=== PATIENT | female | born 1985 | race African-American/Black ===

== ENCOUNTER 2019-04-02 10:05 | Emergency (ER) | payer MEDICAID, OTHER, SELFPAY ==
[~2019-04-02] VITALS: Ht 157.5 cm; Wt 128.6 kg
[2019-04-02] MEDS ORDERED: FLON1SPR NARES (10:16)
[2019-04-02] MEDS ORDERED: NAPROXEN 250 MG TAB PO ONE (11:15)
[2019-04-02 13:04] VITALS: BP 155/88
[2019-04-02] MEDS ORDERED: MOBI4TAB PO (13:05)
[2019-04-02] MEDS ORDERED: ZANA4TAB PO (13:05)
--- NOTE | 2019-04-02 13:32 | REP ---
LUMBAR SPINE COMPLETE: 04/02/2019. Clinical history: Low back pain with right-sided sciatica. Findings: No prior study. The five views show no scoliosis. Posterior elements were intact on the frontal view. Sacrum, SI joints and foramina were unremarkable. Pelvic ring intact. Iliac wings unremarkable. Oblique views show no evidence of spondylolysis or spondylolisthesis. Vertebral body heights and the disc space heights show only minimal narrowing at L5-S1. No compression deformities are noted. No facet arthritis. Impression: 1. Very minimal disc space narrowing at L5-S1, otherwise normal lumbar spine series. Electronically Signed by Chris Buckley MD 04/02/2019 09:54 P
== END 2019-04-02 13:10 | disposition home or self-care (01) ==
LOC: M ED 10:05
DX: M54.41 Lumbago with sciatica, right side (principal); M50.30 Other cervical disc degeneration, unspecified cervical region; M26.609 Unspecified temporomandibular joint disorder, unspecified side

== ENCOUNTER 2019-04-28 19:28 | Emergency (ER) | payer MEDICAID ==
[~2019-04-28] VITALS: Ht 157.5 cm; Wt 129.6 kg
[2019-04-28 19:28] VITALS: BP 143/93
[~2019-04-28 19:28] MED LIST: FLON1SPR NARES; MOBI4TAB PO; ZANA4TAB PO
--- NOTE | 2019-04-28 22:08 | ED PDOC ---
Post-Departure Follow-Up PT LEFT WITHOUT BEING SEEN BY A PROVIDER ADRIA BUSH, Apr 28, 2019 22:08
[2019-04-29] MEDS ORDERED: AUGM875T28 PO (13:25)
[2019-04-29] MEDS ORDERED: IBUP80TA PO (13:25)
== END 2019-04-28 22:30 | disposition left against medical advice (07) ==
LOC: M ED 19:28
DX: K08.89 Other specified disorders of teeth and supporting structures (principal); Z53.21 Procedure and treatment not carried out due to patient leaving prior to being seen by health care provider

== ENCOUNTER 2019-04-29 11:07 | Emergency (ER) | payer MEDICAID ==
[~2019-04-29] VITALS: Ht 157.5 cm; Wt 130.9 kg
[2019-04-29] MEDS ORDERED: ARTICAINE HCL/EPINEPHRINE 4%-1:200,000 1.7ML INJ (SEPTOCAINE) SM ONE (11:45)
[2019-04-29 12:03] LABS: BASO # 0.1 10^3/uL (0.0-0.2); BASO % 1.2 % (0.0-1.0); EOS # 0.2 10^3/uL (0.0-0.5); EOS % 4.5 % (0.0-3.0); HEMATOCRIT 34.4 % (36.0-47.0); HEMOGLOBIN 10.6 g/dl (12.0-15.5); MEAN CORPUSCULAR HEMOGLOBIN 27.4 pg (27.0-33.0); MEAN CORPUSCULAR HGB CONC 30.8 g/dl (32.0-36.5); MEAN CORPUSCULAR VOLUME 88.9 fl (80.0-96.0); MONO # 0.6 10^3/uL (0.0-0.8); MONO % 11.2 % (0.0-5.0); NEUTROPHILS # 2.1 10^3/uL (1.5-8.5); NEUTROPHILS % 42.9 % (36.0-66.0); PLATELET COUNT, AUTOMATED 356 10^3/uL (150-450); RED BLOOD COUNT 3.87 10^6/uL (4.00-5.40); WHITE BLOOD COUNT 4.9 10^3/uL (4.0-10.0)
[2019-04-29] MEDS ORDERED: AUGM875T28 PO (13:25)
[2019-04-29] MEDS ORDERED: IBUP80TA PO (13:25)
[2019-04-29 13:33] VITALS: BP 150/98
== END 2019-04-29 14:15 | disposition home or self-care (01) ==
LOC: M ED 11:07
DX: R68.84 Jaw pain (principal); K08.89 Other specified disorders of teeth and supporting structures; K04.7 Periapical abscess without sinus; M26.602 Left temporomandibular joint disorder, unspecified; D64.9 Anemia, unspecified; I10 Essential (primary) hypertension; F17.200 Nicotine dependence, unspecified, uncomplicated

== ENCOUNTER 2019-06-09 23:32 | Emergency (ER) | payer OTHER ==
[~2019-06-09] VITALS: Ht 157.5 cm; Wt 129.6 kg
[~2019-06-09 23:32] MED LIST changes: +AUGM875T28 PO; +IBUP80TA PO
[2019-06-09 23:33] VITALS: BP 170/94
[2019-06-09] MEDS ORDERED: FLON1SPR NARES (23:38)
== END 2019-06-10 00:16 | disposition left against medical advice (07) ==
LOC: M ED 23:32
DX: Z53.21 Procedure and treatment not carried out due to patient leaving prior to being seen by health care provider (principal)

== ENCOUNTER 2019-07-03 13:23 | Emergency (ER) | payer OTHER ==
[~2019-07-03] VITALS: Ht 157.5 cm; Wt 129.6 kg
[2019-07-03 14:33] LABS: BASO # 0.1 10^3/uL (0.0-0.2); BASO % 0.8 % (0.0-1.0); EOS # 0.4 10^3/uL (0.0-0.5); EOS % 5.9 % (0.0-3.0); HEMATOCRIT 37.2 % (36.0-47.0); HEMOGLOBIN 11.3 g/dl (12.0-15.5); LYMPH # 1.9 10^3/uL (1.5-5.0); MEAN CORPUSCULAR HEMOGLOBIN 27.1 pg (27.0-33.0); MEAN CORPUSCULAR HGB CONC 30.4 g/dl (32.0-36.5); MEAN CORPUSCULAR VOLUME 89.2 fl (80.0-96.0); MONO # 0.7 10^3/uL (0.0-0.8); MONO % 11.4 % (0.0-5.0); NEUTROPHILS # 3.2 10^3/uL (1.5-8.5); NEUTROPHILS % 51.4 % (36.0-66.0); PLATELET COUNT, AUTOMATED 373 10^3/uL (150-450); RED BLOOD COUNT 4.17 10^6/uL (4.00-5.40); WHITE BLOOD COUNT 6.2 10^3/uL (4.0-10.0)
[2019-07-03 14:57] LABS: ALBUMIN 3.6 GM/DL (3.2-5.2); ALT/SGPT 13 U/L (12-78); BILIRUBIN,DIRECT < 0.1 MG/DL (0.0-0.2); BILIRUBIN,TOTAL 0.3 MG/DL (0.2-1.0); BLOOD UREA NITROGEN 19 MG/DL (7-18); CALCIUM LEVEL 9.2 MG/DL (8.5-10.1); CARBON DIOXIDE LEVEL 26 MEQ/L (21-32); CHLORIDE LEVEL 109 MEQ/L (98-107); CREATININE FOR GFR 0.99 MG/DL (0.55-1.30); GLOMERULAR FILTRATION RATE > 60.0 (>60); GLUCOSE, FASTING 82 MG/DL (70-100); LIPASE 126 U/L (73-393); POTASSIUM SERUM 4.7 MEQ/L (3.5-5.1); SODIUM LEVEL 140 MEQ/L (136-145); TOTAL PROTEIN 7.4 GM/DL (6.4-8.2)
[2019-07-03 15:00] LABS: HCG, SERUM QUALITATIVE NEGATIVE (NEGATIVE)
[2019-07-03] MEDS ORDERED: ISOVUE-370 76% 100ML VIAL (Q9967) As Ordered ONE (15:18)
[2019-07-03 16:39] VITALS: BP 139/89
--- NOTE | 2019-07-04 07:00 | REP ---
CT abdomen and pelvis with IV but without oral contrast: History: Right lower quadrant pain and diarrhea. No comparison study. CT contrast dose: 100 mL of intravenous Isovue [address] findings: Preliminary digital center maker hand radiograph is unremarkable. Normal bowel gas pattern. The lung bases are clear on axial CT images. The liver and the spleen are normal in size, homogeneous in texture. No adrenal lesion is seen. No abnormality is noted in the pancreas. The gallbladder is small and unremarkable. There is mild cortical scarring in the upper and lower pole of the right kidney. No hydronephrosis is seen. No mass lesion is observed. No intrarenal calculus is seen. No retroperitoneal mass or adenopathy is seen. The appendix is surgically absent. Small and large intestinal bowel loops are unremarkable in the abdomen and pelvis. No abdominal wall defect is seen. The uterus is mildly enlarged with dimensions of 10.7 x 5.3 x 6.6 cm. No focal uterine mass is seen. No ovarian mass or cyst is observed. Urinary bladder is unremarkable. There is no evidence of free intraperitoneal air or abnormal fluid collection. Impression: The appendix is surgically absent. Mildly enlarged uterus. No acute abdominal or pelvic CT abnormality. There is some old cortical scarring of the right kidney. Electronically Signed by Vince Loera MD 07/04/2019 08:37 A
== END 2019-07-03 16:43 | disposition home or self-care (01) ==
LOC: M ED 13:23
DX: R19.7 Diarrhea, unspecified (principal); I10 Essential (primary) hypertension; G47.30 Sleep apnea, unspecified; F17.200 Nicotine dependence, unspecified, uncomplicated; Z79.899 Other long term (current) drug therapy
CPT/HCPCS: 74177; 80048; 80076; 81001; 83690; 84703; 85025; 87086; 99284; Q9967

== ENCOUNTER 2019-09-07 20:52 | Emergency (ER) | payer OTHER ==
[~2019-09-07] VITALS: Ht 157.5 cm; Wt 118.2 kg
[2019-09-07 21:49] LABS: INFLUENZA A AMPLIFICATION NEGATIVE (NEGATIVE); INFLUENZA B AMPLIFICATION NEGATIVE (NEGATIVE)
[2019-09-08] MEDS ORDERED: MAGIC MOUTHWASH SUSPENSION BTL SSP STA (00:01)
[2019-09-08] MEDS ORDERED: PROAAER10 INH (00:10)
[2019-09-08] MEDS ORDERED: IPRATROPIUM 0.5MG/ALBUTEROL 2.5MG INH SOL UD 3ML (DUONEB)(J7620) NEB ONE (00:15)
[2019-09-08] MEDS ORDERED: BENZONATATE 100 MG CAP PO ONE (00:15)
[2019-09-08] MEDS ORDERED: NAPROXEN 250 MG TAB PO ONE (00:15)
[2019-09-08] MEDS ORDERED: PRED20TA PO (00:48)
[2019-09-08] MEDS ORDERED: AZIT-12 PO (00:48)
[2019-09-08] MEDS ORDERED: CLEV1MIS25 XX (00:48)
[2019-09-08] MEDS ORDERED: NAPR-837 PO (00:48)
[2019-09-08] MEDS ORDERED: ALBU83IN NEB (00:48)
--- NOTE | 2019-09-08 00:51 | REP ---
Clinical: Cough . Comparison: None . Technique: PA and lateral. Findings: The mediastinum and cardiac silhouette are normal. The lung he are clear and without acute consolidation, effusion, or pneumothorax. The skeletal structures are intact and normal. Impression: 1. No acute cardiopulmonary process. Electronically Signed by Ori Gamino MD 09/08/2019 12:42 A
[2019-09-08 01:00] VITALS: BP 135/90
[2019-09-08] MEDS ORDERED: AZITHROMYCIN 250 MG TAB PO ONE (01:00)
== END 2019-09-08 01:02 | disposition home or self-care (01) ==
LOC: M ED 20:52
DX: J06.9 Acute upper respiratory infection, unspecified (principal); R07.89 Other chest pain; R05 Cough; R06.2 Wheezing; I10 Essential (primary) hypertension; J45.909 Unspecified asthma, uncomplicated; F17.200 Nicotine dependence, unspecified, uncomplicated

== ENCOUNTER 2019-10-25 08:21 | Emergency (ER) | payer OTHER ==
[~2019-10-25] VITALS: Ht 157.5 cm; Wt 132.5 kg
[~2019-10-25 08:21] MED LIST changes: +ALBU83IN NEB; +AZIT-12 PO; +CLEV1MIS25 XX; +NAPR-837 PO; +PRED20TA PO; +PROAAER10 INH
[2019-10-25 09:38] LABS: BASO # 0.1 10^3/uL (0.0-0.2); BASO % 1.1 % (0.0-1.0); EOS # 0.4 10^3/uL (0.0-0.5); EOS % 7.7 % (0.0-3.0); HEMATOCRIT 35.4 % (36.0-47.0); HEMOGLOBIN 10.8 g/dl (12.0-15.5); LYMPH # 1.7 10^3/uL (1.5-5.0); MEAN CORPUSCULAR HEMOGLOBIN 26.9 pg (27.0-33.0); MEAN CORPUSCULAR HGB CONC 30.5 g/dl (32.0-36.5); MEAN CORPUSCULAR VOLUME 88.3 fl (80.0-96.0); MONO # 0.6 10^3/uL (0.0-0.8); MONO % 13.5 % (0.0-5.0); NEUTROPHILS # 1.8 10^3/uL (1.5-8.5); NEUTROPHILS % 39.5 % (36.0-66.0); PLATELET COUNT, AUTOMATED 337 10^3/uL (150-450); RED BLOOD COUNT 4.01 10^6/uL (4.00-5.40); WHITE BLOOD COUNT 4.5 10^3/uL (4.0-10.0)
[2019-10-25 09:56] LABS: BLOOD UREA NITROGEN 17 MG/DL (7-18); CALCIUM LEVEL 8.3 MG/DL (8.5-10.1); CARBON DIOXIDE LEVEL 27 MEQ/L (21-32); CHLORIDE LEVEL 110 MEQ/L (98-107); CREATININE FOR GFR 0.81 MG/DL (0.55-1.30); GLOMERULAR FILTRATION RATE > 60.0 (>60); GLUCOSE, FASTING 93 MG/DL (70-100); POTASSIUM SERUM 4.3 MEQ/L (3.5-5.1); SODIUM LEVEL 141 MEQ/L (136-145)
[2019-10-25 10:32] VITALS: BP 132/93
== END 2019-10-25 10:35 | disposition home or self-care (01) ==
LOC: M ED 08:21
DX: N94.6 Dysmenorrhea, unspecified (principal); N93.9 Abnormal uterine and vaginal bleeding, unspecified; Z86.19 Personal history of other infectious and parasitic diseases; Z87.59 Personal history of other complications of pregnancy, childbirth and the puerperium; I10 Essential (primary) hypertension; J45.909 Unspecified asthma, uncomplicated; F17.200 Nicotine dependence, unspecified, uncomplicated; F12.10 Cannabis abuse, uncomplicated

== ENCOUNTER → 2020-01-25 | Outpatient (REF) | payer OTHER, MEDICAID ==
[2020-01-27 08:09] LABS: MUMPS VIRUS IgG ANTIBODY 19.2 AU/mL (Immune >10.9); RUBEOLA IgG ANTIBODY 15.2 AU/mL (Immune >16.4)
== END ==
LOC: M LAB REF 16:06
PROVIDERS: ATTEND Physician Assistant
DX: Z76.89 Persons encountering health services in other specified circumstances (principal); Z02.1 Encounter for pre-employment examination

== ENCOUNTER 2020-02-01 07:42 | Emergency (ER) | payer OTHER ==
[~2020-02-01] VITALS: Ht 160 cm; Wt 131.0 kg
[2020-02-01 08:19] LABS: BASO % 0.6 % (0.0-1.0); EOS # 0.3 10^3/uL (0.0-0.5); HEMATOCRIT 33.2 % (36.0-47.0); HEMOGLOBIN 10.4 g/dl (12.0-15.5); LYMPH # 2.1 10^3/uL (1.5-5.0); LYMPH % 33.1 % (24.0-44.0); MEAN CORPUSCULAR HEMOGLOBIN 27.1 pg (27.0-33.0); MEAN CORPUSCULAR HGB CONC 31.3 g/dl (32.0-36.5); MEAN CORPUSCULAR VOLUME 86.5 fl (80.0-96.0); MONO # 0.6 10^3/uL (0.0-0.8); MONO % 9.9 % (0.0-5.0); NEUTROPHILS # 3.4 10^3/uL (1.5-8.5); NEUTROPHILS % 52.2 % (36.0-66.0); PLATELET COUNT, AUTOMATED 337 10^3/uL (150-450); RED BLOOD COUNT 3.84 10^6/uL (4.00-5.40); WHITE BLOOD COUNT 6.4 10^3/uL (4.0-10.0)
[2020-02-01 08:52] LABS: ALBUMIN 3.2 GM/DL (3.2-5.2); ALT/SGPT 11 U/L (12-78); BILIRUBIN,DIRECT 0.1 MG/DL (0.0-0.2); BILIRUBIN,TOTAL 0.4 MG/DL (0.2-1.0); HCG, SERUM QUALITATIVE POSITIVE (NEGATIVE); LIPASE 92 U/L (73-393); TOTAL PROTEIN 7.1 GM/DL (6.4-8.2)
[2020-02-01 09:46] LABS: BLOOD UREA NITROGEN 12 MG/DL (7-18); CALCIUM LEVEL 8.6 MG/DL (8.5-10.1); CARBON DIOXIDE LEVEL 26 MEQ/L (21-32); CHLORIDE LEVEL 107 MEQ/L (98-107); CREATININE FOR GFR 0.79 MG/DL (0.55-1.30); GLOMERULAR FILTRATION RATE > 60.0 (>60); GLUCOSE, FASTING 96 MG/DL (70-100); HCG, SERUM QUANTITATIVE 19972 MIU/ML; POTASSIUM SERUM 4.1 MEQ/L (3.5-5.1); SODIUM LEVEL 138 MEQ/L (136-145)
--- NOTE | 2020-02-01 10:46 | REP ---
Clinical: Dating and viability. Technique: Transabdominal first trimester obstetrical ultrasound with color Doppler evaluation. Findings: Ultrasound examination demonstrates single live early intrauterine . Gestational sac with yolk sac and pole identified. CRL of 5 mm corresponds to 6 weeks 2 days gestational age with estimated date of delivery 09/24/2020. heart rate equals 129 beats per minute. No gross abnormalities are identified. Maternal ovaries demonstrate left corpus luteum cyst. Impression: Single live early intrauterine at 6 weeks 2 days gestational age. Complete anatomical assessment should be performed at 19-20 weeks. Electronically Signed by Ori Gamino MD 02/01/2020 10:37 A
[2020-02-01 11:09] VITALS: BP 145/84
== END 2020-02-01 11:41 | disposition home or self-care (01) ==
LOC: M ED 07:42
DX: R10.84 Generalized abdominal pain (principal); Z33.1 Pregnant state, incidental; M25.562 Pain in left knee; Z3A.01 Less than 8 weeks gestation of pregnancy

== ENCOUNTER → 2020-02-23 | Outpatient (REF) | payer OTHER ==
[~2020-02-23] MED LIST changes: +MICO2CRE; +PRENTAB7
[2020-02-23 13:20] LABS: HEMATOCRIT 33.9 % (36.0-47.0); HEMOGLOBIN 10.6 g/dl (12.0-15.5); MEAN CORPUSCULAR HEMOGLOBIN 27.5 pg (27.0-33.0); MEAN CORPUSCULAR HGB CONC 31.3 g/dl (32.0-36.5); MEAN CORPUSCULAR VOLUME 87.8 fl (80.0-96.0); PLATELET COUNT, AUTOMATED 439 10^3/uL (150-450); RED BLOOD COUNT 3.86 10^6/uL (4.00-5.40)
[2020-02-23 14:48] LABS: HCG, SERUM QUANTITATIVE 75673 MIU/ML
[2020-02-24 09:30] LABS: HEPATITIS B SURFACE ANTIGEN NEGATIVE (NEGATIVE)
[2020-02-24 09:57] LABS: HEPATITIS C VIRUS ABY INDEX 0.1 INDEX (<0.8)
[2020-02-24 09:58] LABS: HIV 1&2 SCREEN CENTAUR NEGATIVE (NEGATIVE)
== END ==
LOC: M LAB REF 11:41
PROVIDERS: ATTEND Obstetrics & Gynecology
DX: O36.80X0 Pregnancy with inconclusive fetal viability, not applicable or unspecified (principal)

== ENCOUNTER → 2020-03-02 | Outpatient (CLI) | payer OTHER ==
--- NOTE | 2020-03-02 14:39 | REP ---
REASON FOR EXAM: Followup. COMPARISON: 02/01/2020 Transvesical imaging only was obtained. Once again, within the uterus, there is an anechoic structure with increased echoes surrounding it consistent with a decidual reaction. Within the gestational sac, there is a pole with a mean crown-rump length measurement which is consistent with an 97-bvfy-5-day gestational age. Based on that the estimated date of delivery is 09/20/2020. Doppler interrogation of the heart shows a heart rate of 172 beats per minute. The maternal cervix measures 4 cm in length and is closed. The developing placenta is posterior at this time. No chorionic or subchorionic abnormality was noted. IMPRESSION: Early OB ultrasound as described above.
== END ==
LOC: M WHC 12:14
PROVIDERS: ATTEND Advanced Practice Midwife
DX: O36.80X0 Pregnancy with inconclusive fetal viability, not applicable or unspecified (principal); Z3A.11 11 weeks gestation of pregnancy

== ENCOUNTER 2020-03-06 09:11 | Emergency (ER) | payer OTHER ==
[~2020-03-06] VITALS: Ht 160 cm; Wt 130.8 kg
[~2020-03-06 09:11] MED LIST changes: -MICO2CRE; -PRENTAB7
[2020-03-06 09:12] VITALS: BP 137/73
[2020-03-06] MEDS ORDERED: PRENTAB7 (09:18)
[2020-03-06] MEDS ORDERED: MICO2CRE (09:18)
[2020-03-06 10:22] LABS: BASO % 0.4 % (0.0-1.0); EOS # 0.2 10^3/uL (0.0-0.5); EOS % 2.1 % (0.0-3.0); HEMATOCRIT 32.8 % (36.0-47.0); HEMOGLOBIN 10.2 g/dl (12.0-15.5); LYMPH # 1.9 10^3/uL (1.5-5.0); LYMPH % 26.6 % (24.0-44.0); MEAN CORPUSCULAR HEMOGLOBIN 27.1 pg (27.0-33.0); MEAN CORPUSCULAR HGB CONC 31.1 g/dl (32.0-36.5); MEAN CORPUSCULAR VOLUME 87.2 fl (80.0-96.0); MONO # 0.7 10^3/uL (0.0-0.8); NEUTROPHILS # 4.4 10^3/uL (1.5-8.5); NEUTROPHILS % 61.5 % (36.0-66.0); PLATELET COUNT, AUTOMATED 395 10^3/uL (150-450); RED BLOOD COUNT 3.76 10^6/uL (4.00-5.40); WHITE BLOOD COUNT 7.2 10^3/uL (4.0-10.0)
--- NOTE | 2020-03-06 12:58 | REP ---
Clinical: Pelvic pain and vaginal bleeding. Technique: Transabdominal first trimester obstetrical ultrasound with color Doppler evaluation. Findings: Ultrasound examination demonstrates single live early intrauterine . pole measurements of 4.5 cm corresponds to 11 weeks 2 days gestational age with estimated date of delivery 09/23/2020. heart rate equals 156 beats per minute. No obvious abnormality or subchorionic hemorrhage noted. Impression: Single live early intrauterine measuring at 11 weeks 2 days gestational age. Complete anatomical assessment should be performed at 19-20 weeks. Electronically Signed by Ori Gamino MD 03/06/2020 12:50 P
[2020-03-06 13:41] LABS: CHLAMYDIA DNA AMPLIFICATION NEGATIVE (NEGATIVE); GC DNA AMPLIFICATION NEGATIVE (NEGATIVE)
== END 2020-03-06 14:05 | disposition home or self-care (01) ==
LOC: M ED 09:11
DX: O26.891 Other specified pregnancy related conditions, first trimester (principal); N89.8 Other specified noninflammatory disorders of vagina; Z87.59 Personal history of other complications of pregnancy, childbirth and the puerperium; Z3A.11 11 weeks gestation of pregnancy

== ENCOUNTER → 2020-05-11 | Outpatient (CLI) | payer OTHER ==
[~2020-05-11] MED LIST changes: +MICO2CRE; +PRENTAB7
--- NOTE | 2020-05-17 17:23 | REP ---
OBSTETRIC SONOGRAPHY HISTORY: Supervision of for anatomy. FINDINGS: Scanning through the gravid uterus demonstrates a single living intrauterine gestation in a variable lie. motion is observed and heart rate is recorded at 156 beats per minute. A posterior grade 1 placenta is seen without evidence of previa or abruption. Amniotic fluid is subjectively normal. Closed cervical length is measured at 3.6 cm, viewed transabdominally. No extrauterine abnormality is observed. No abnormality is observed. The following anatomic structures are identified and felt to be sonographically unremarkable: cranium and intracranial contents, nuchal fold, face and profile, nose and lips, four chamber heart with left and right ventricular outflow tract views, diaphragm, left-sided stomach, three-vessel cord, kidneys and bladder, spine, upper and lower extremities. BIOMETRY CHART: BPD 4.7 cm 20 weeks 2 days Head circumference 17.5 cm 20 weeks 0 days Abdominal circumference 15.7 cm 20 weeks 6 days Femur length 3.5 cm 21 weeks 0 days Humeral length 3.5 cm 22 weeks 1 day AC/HC ratio 1.12 Normal Cephalic index 0.74 Normal Estimated weight 379 grams, 0 pounds 13 ounces, 30th percentile for 20 weeks 1 day. IMPRESSION: Single living intrauterine gestation at 20 weeks 6 days by todays composite sonographic criteria. Estimated date of delivery (MANUELA) by todays criteria 09/22/2020. anatomic survey is felt to be complete. MTDD
== END ==
LOC: M WHC 13:58
PROVIDERS: ATTEND Advanced Practice Midwife
DX: Z34.82 Encounter for supervision of other normal pregnancy, second trimester (principal); Z3A.20 20 weeks gestation of pregnancy

== ENCOUNTER → 2020-06-29 | Outpatient (CLI) | payer OTHER ==
[2020-06-29 09:16] LABS: HEMATOCRIT 32.4 % (36.0-47.0); HEMOGLOBIN 9.8 g/dl (12.0-15.5); MEAN CORPUSCULAR HGB CONC 30.2 g/dl (32.0-36.5); MEAN CORPUSCULAR VOLUME 89.3 fl (80.0-96.0); PLATELET COUNT, AUTOMATED 357 10^3/uL (150-450); RED BLOOD COUNT 3.63 10^6/uL (4.00-5.40); WHITE BLOOD COUNT 8.6 10^3/uL (4.0-10.0)
== END ==
LOC: M LAB 07:33
PROVIDERS: ATTEND Advanced Practice Midwife
DX: Z34.82 Encounter for supervision of other normal pregnancy, second trimester (principal); Z36.89 Encounter for other specified antenatal screening

== ENCOUNTER → 2020-08-24 | Outpatient (REF) | payer OTHER | LOC: M LAB REF 12:40 | PROVIDERS: ATTEND Advanced Practice Midwife | DX: Z34.83 Encounter for supervision of other normal pregnancy, third trimester (principal); Z3A.00 Weeks of gestation of pregnancy not specified ==

== ENCOUNTER 2020-08-27 15:14 | Emergency (ER) | payer OTHER ==
[~2020-08-27] VITALS: Ht 157.5 cm; Wt 138.6 kg
--- OUTSIDE RECORDS SUMMARY | 2020-08-27 15:21 | CCD ---
Author Author [facility] Organization [facility] Address Unknown Phone Unavailable Care Team Providers Care Veneer Patcher Name Role Phone Freddie, Pedro Giana DIRECTOR OF REIMBURSEMENT Unavailable Unavailable Freddie, A Giana DIRECTOR OF REIMBURSEMENT Unavailable Unavailable Freddie, A Giana DIRECTOR OF REIMBURSEMENT Unavailable Unavailable Freddie, A Giana DIRECTOR OF REIMBURSEMENT Unavailable Unavailable Freddie, A Giana DIRECTOR OF REIMBURSEMENT Unavailable Unavailable Freddie, A Giana DIRECTOR OF REIMBURSEMENT Unavailable Unavailable Freddie, A Giana DIRECTOR OF REIMBURSEMENT Unavailable Unavailable Freddie, A Giana DIRECTOR OF REIMBURSEMENT Unavailable Unavailable Freddie, A Giana DIRECTOR OF REIMBURSEMENT Unavailable Unavailable Freddie, A Giana DIRECTOR OF REIMBURSEMENT Unavailable Unavailable Freddie, A Giana DIRECTOR OF REIMBURSEMENT Unavailable Unavailable Freddie, A Giana DIRECTOR OF REIMBURSEMENT Unavailable Unavailable Freddie, A Giana DIRECTOR OF REIMBURSEMENT Unavailable Unavailable Freddie, A Giana DIRECTOR OF REIMBURSEMENT Unavailable Unavailable Freddie, A Giana DIRECTOR OF REIMBURSEMENT Unavailable Unavailable Freddie, A Giana DIRECTOR OF REIMBURSEMENT Unavailable Unavailable Freddie, A Giana DIRECTOR OF REIMBURSEMENT Unavailable Unavailable Freddie, A Giana DIRECTOR OF REIMBURSEMENT Unavailable Unavailable Freddie, A Giana DIRECTOR OF REIMBURSEMENT Unavailable Unavailable Freddie, A Giana DIRECTOR OF REIMBURSEMENT Unavailable Unavailable Freddie, A Giana DIRECTOR OF REIMBURSEMENT Unavailable Unavailable Freddie, A Giana DIRECTOR OF REIMBURSEMENT Unavailable Unavailable Freddie, A Giana DIRECTOR OF REIMBURSEMENT Unavailable Unavailable Freddie, A Giana DIRECTOR OF REIMBURSEMENT Unavailable Unavailable Freddie, A Giana DIRECTOR OF REIMBURSEMENT Unavailable Unavailable Freddie, A Giana DIRECTOR OF REIMBURSEMENT Unavailable Unavailable Freddie, A Giana DIRECTOR OF REIMBURSEMENT Unavailable Unavailable NON, PHYSICIAN STAFF Unavailable Unavailable TURRIN, SASCHA Unavailable Unavailable TURRIN, SASCHA Unavailable Unavailable TURRIN, SASCHA Unavailable Unavailable TURRIN, SASCHA Unavailable Unavailable Freddie, Giana DIRECTOR OF REIMBURSEMENT DIRECTOR OF REIMBURSEMENT Unavailable Unavailable DEBRA TOLEDO MD Unavailable Unavailable DEBRA TOLEDO MD Unavailable Unavailable DEBRA TOLEDO MD Unavailable Unavailable DEBRA TOLEDO MD Unavailable Unavailable Re-disclosure Warning The records that you are about to access may contain information from federally-assisted alcohol or drug abuse programs. If such information is present, then the following federally mandated warning applies: This information has been disclosed to you from records protected by federal confidentiality rules (42 CFR part 2). The federal rules prohibit you from making any further disclosure of this information unless further disclosure is expressly permitted by the written consent of the person to whom it pertains or as otherwise permitted by 42 CFR part 2. A general authorization for the release of medical or other information is NOT sufficient for this purpose. The Federal rules restrict any use of the information to criminally investigate or prosecute any alcohol or drug abuse patient.The records that you are about to access may contain highly sensitive health information, the redisclosure of which is protected by Article 27-F of the [facility] Public Health law. If you continue you may have access to information: Regarding HIV / AIDS; Provided by facilities licensed or operated by the [facility] Office of Mental Health; or Provided by the [facility] Office for People With Developmental Disabilities. If such information is present, then the following [facility] mandated warning applies: This information has been disclosed to you from confidential records which are protected by state law. State law prohibits you from making any further disclosure of this information without the specific written consent of the person to whom it pertains, or as otherwise permitted by law. Any unauthorized further disclosure in violation of state law may result in a fine or correction sentence or both. A general authorization for the release of medical or other information is NOT sufficient authorization for further disc losure. Allergies and Adverse Reactions Type Description Substance Reaction Status Data Source(s ) Drug Class NO KNOWN ALLERGIES NO KNOWN ALLERGIES [facility] Miscellaneous allergy SEASONAL SEASONAL [facility] Family History Family Member Name Family Member Gender Family Member Status Date o f Status Description Data Source(s) Unknown Female Diagnosis 09/20/2014 12:00:00 AM [facility]) Encounters Encounter Providers Location Date Indications Data Source(s ) Outpatient Attender: Giana [facility]CO [facility]: DEBRA TOLEDO MD 03/13/2020 12:0 0:00 AM [facility] Outpatient Attender: Giana OROZCO 01/27/2020 02:5 5:00 PM EDT [facility] Outpatient Attender: Giana OROZCO [facility]/27[facility]: [facility]STO EDDY [facility] ER[facility]STO EDDY 01/26/2020 08:43:01 A M EDT [facility] Outpatient Attender: ERNESTO EDDY 01/26/2020 [facility]: ER[facility]STO EDDY 01/25/2020 02:03:00 P M EDT [facility] Outpatient Attender: Giana CANALESP FP 01/25/2020 01:4 2:00 PM EDT [facility] Outpatient Attender: ERNESTO CANALESP FP 01/25/2020 01:42:00 P M EDT [facility] Outpatient Attender: Giana CANALESP FP 01/25/2020 01:3 0:05 PM EDT [facility] Outpatient Attender: ERNESTO CANALESP FP 01/25/2020 01:30:05 P M EDT [facility] Outpatient Attender: ERNESTO CANALESP FP 01/24/2020 07:59:23 P M EDT [facility] Outpatient Attender: ERNESTO CANALESP FP 01/24/2020 01:54:00 P M EDT [facility] Outpatient Attender: ERNESTO CANALESP FP 01/24/2020 11:13:00 A M EDT [facility] Outpatient Attender: Giana CANALESP FP 01/20/2020 09:1 6:00 AM EDT [facility] Outpatient Attender: ERNESTO CANALESP FP 12/23/2019 12:45:01 P M EDT [facility] Outpatient Attender: Giana CANALESP FP 12/07/2019 08:1 0:00 AM EDT [facility] Outpatient Attender: ERNESTO CANALESP FP 12/06/2019 10:56:01 A M EDT [facility] Outpatient Attender: DEBRA TOLEDO MD 12/05/2019 12:0 0:00 AM [facility] Outpatient Attender: ERNESTO CANALESP FP 10/18/2019 10:26:00 A M [facility] Outpatient Attender: ERNESTO CANALESP FP 10/18/2019 10:09:02 A M EST [facility] Outpatient Attender: ERNESTO CANALESP FP 10/17/2019 11:18:00 A M [facility] Outpatient Attender: Giana CANALESP FP 10/12/2019 03:0 6:01 PM EST [facility] Outpatient Attender: ERNESTO CANALESP FP 10/05/2019 12:47:00 P M EST [facility] Outpatient Attender: ERNESTO Frazier DIRECTOR OF REIMBURSEMENT FP 09/21/2019 12:14:00 P [facility] Outpatient Attender: ERNESTO Freddie DIRECTOR OF REIMBURSEMENT FP 09/21/2019 10:23:00 A [facility] Outpatient Attender: ERNESTO Freddie DIRECTOR OF REIMBURSEMENT FP 09/20/2019 09:29:01 A M [facility] Outpatient Attender: Giana Freddie DIRECTOR OF REIMBURSEMENT FP 09/20/2019 09:1 8:01 AM [facility] Outpatient Attender: ERNESTO Frazier DIRECTOR OF REIMBURSEMENT FP 09/15/2019 12:00:31 A M [facility] Outpatient Attender: ERNESTO Frazier DIRECTOR OF REIMBURSEMENT FP 09/14/2019 09:01:12 P [facility] Outpatient Attender: ERNESTO CANALESP FP 09/14/2019 12:04:01 P [facility] Outpatient Attender: ERNESTO Frazier DIRECTOR OF REIMBURSEMENT FP 09/14/2019 10:05:01 A M [facility] Outpatient 09/12/2019 02:27:00 PM [facility] Outpatient Attender: ERNESTO Frazier DIRECTOR OF REIMBURSEMENT FP 09/12/2019 10:10:01 A M [facility] Outpatient Attender: ERNESTO Freddie DIRECTOR OF REIMBURSEMENT FP 08/19/2019 09:25:00 A [facility] Outpatient Attender: Giana CANALESP FP 08/19/2019 09:2 4:00 AM [facility] Outpatient 08/01/2019 09:15:00 PM [facility] Emergency Attender: SASCHA ALLENConsultant: STAFF NON 08/01/2019 07:37:00 PM [facility] - 08/01/2019 10:29:00 PM [facility] Patient discharged. Outpatient Attender: ERNESTO Frazier DIRECTOR OF REIMBURSEMENT FP 08/01/2019 10:18:00 A M [facility] Outpatient 07/24/2019 09:30:00 PM [facility] Insurance Providers Payer name Policy type / Coverage type Policy ID Covered democrat ID Covered democrat's relationship to garcia Policy Garcia Plan Information ORAL [id number] SP [id number] ORAL [facility] [id number] S [id number] PROGRESSIVE CO NO FAULT [id number] SP [id number] MEDICAID M [id number] Self [id number] [place] [id number] SP [id number] Managed Care [place] P [id number] S [id number] Medicaid S [id number] S [id number] [place] XIX MAN -PHYSICIAN [id number] 18 [id number] [place] -[place] [id number] 18 [id number] MEDICAID [id number] SP [id number] MEDICAID [id number] Char [id number] SELF PAY ONLY [id number] SP [id number] ORAL I [id number] Self [id number] ORAL MEDICAID [id number] Char 7 [id number] ORAL MEDICAID [id number] Char 7 [id number] ORAL CARE HEA [id number] S [id number] [place] Medicaid F [id number] SELF 7 [id number] Oral Medicaid F [id number] SELF 7 [id number] MEDICAID [id number] Char [id number] ORAL MEDICAID PI PI [place] Medicaid F [id number] SELF 7 [id number] Oral Medicaid F [id number] SELF 7 [id number] MEDICAID [id number] Char [id number] MEDICAID [id number] Char [id number] MEDICAID [id number] Char [id number] MEDICAID [id number] Char [id number] MEDICAID [id number] Char [id number] MEDICAID [id number] Char [id number] Oral [id number] STPP Wrap [id number] [place] Medicaid F [id number] SELF 7 [id number] Medicaid [facility] S D [id number] SELF [id number] Oral Medicaid F [id number] SELF 7 [id number] ORAL I [id number] Self [id number] MEDICAID [id number] Char [id number] ORAL CARE HEA [id number] TOTAL CARE I [id number] Self [id number] TOTAL CARE MEDICAID [id number] Char [id number] Total Care Inc [id number] [facility] [id number] [facility] I [id number] Self [id number] TOTAL CARE W [id number] S [id number] MEDICAID W UNAVAILABLE S UNAVAILA BLE MEDICAID GME W [id number] S [id number] [facility] COMM PLAN ASIA W [id number] S [id number] MEDICAID GME W UNAVAILABLE S UNAVA ILABLE SELF PAY 5 UNAVAILABLE 1 UNAVAILA BLE SELFPAY 5 UNAVAILABLE 1 UNAVAILA BLE [facility] MEDICAID 7 [id number] 1 [id number] BLUE CHOICE OPTIONS 7 [id number] [facility] COMM PLAN ASIA UNAVAILABLE S UNAVAILABLE HMO BLUE OPTION W [id number] S [id number] MEDICAID REF AMBULAT W [id number] S [id number] BLUE CHOICE OPTION O [id number] S [id number] HMO BLUE OPTION W [id number] S [id number] MEDICAID 3 [id number] BLUE CHOICE OPTIONS 7 [id number] Problems, Conditions, and Diagnoses Code Display Name Description Problem Type Effective Dates Data Source(s) [id number] Immunization status unknown Immunization status unknow n 01/25/2020 01:41:08 PM EDT [facility] V70.5 Encounter for pre-employment examination Encounter for pre-employment examination 01/25/2020 01:41:08 PM EDT [facility] [id number] Amenorrhea, unspecified Amenorrhea, unspecified 01/25/2020 01:29:35 PM EDT [facility] V74.1 Encounter for screening for respiratory tuberculosis Encounter for screening for respiratory tuberculosis 01/25/2020 01:29:35 P M EDT [facility] [id number] Major depressive disorder, single episod e, mild Major depressive disorder, single episode, mild 09/14/2019 12:03:44 [facility] BMI 50.0-59.9 BMI 50.0-59.9 09/14/2019 12:03:44 PM [facility] 278.01 MORBID OBESITY MORBID OBESITY 09/14/2019 12:03: 44 PM [facility] 611.1 Large breast Large breast 09/14/2019 12:03:44 P M [facility] J45.21 Mild intermittent asthma with (acute) ex acerbation Exacerbation of intermittent asthma 09/14/2019 12:03:44 PM [facility] V70.0 Encounter for general adult medical exam ination with abnormal findings Encounter for general adult medical examination with abnormal findings 09/14/2019 12:03:44 PM [facility] Z01.419 Encounter for gynecological examination (general) (routine) without abnormal findings Encounter for gynecological examination (general) (routine) without abnormal findings 09/14/2019 12:03:44 PM [facility] [id number] Contraception care education Contraception care educat ion 09/14/2019 12:03:44 PM [facility] 401.1 Benign hypertension Benign hypertension 020 12:03:44 PM [facility] V15.89 Passive smoke exposure Passive smoke exposure 09/14/2019 12:03:44 PM [facility] 305.1 Tobacco use Tobacco use 09/14/2019 12:03:44 PM [facility] Y9289 Other specified places as the place of o ccurrence of the external cause Other specified places as the place of occurrence of the external cause Diagnosis 08/01/2019 07:37:00 PM [facility] [id number] Overexertion from strenuous movement or load, initial encounter Overexertion from strenuous movement or load, initial encounter Diagnosis 08/01/2019 07:37:00 PM [facility] [id number] Nicotine dependence, cigarettes, uncompl icated Nicotine dependence, cigarettes, uncomplicated Diagnosis 08/01/2019 07:37:00 PM [facility] I10 Essential (primary) hypertension Essential (primary) h ypertension Diagnosis 08/01/2019 07:37:00 PM [facility] [id number] Strain of muscle, fascia and tendon of l ower back, initial encounter Strain of muscle, fascia and tendon of lower back, initial encounter Diagnosis 08/01/2019 07:37:00 PM [facility] [id number] Unspecified injury of lower back, initia l encounter Unspecified injury of lower back, initial encounter Diagnosis 08/01/2019 07:37:00 PM [facility] Results ID Date Data Source [id number] 01/25/2020 02:20:52 PM EDT [facility] Tuberculosis Screening - General Review TB Risk Assessment: Low RiskReview of Systems: Denies Cough for longer than 3 weeks, Coughing up blood or blood in sputum, Unexplained weight loss, Chronic fever, Night sweats for longer than 3 weeks. Tuberculosis Screening Performed By: Ama Dalal, January 25, 2020 2:21 PMTuberculosis Screening - International Patients QuestionsHave you had recent close contact with someone who has infectious tuberculosis? NoHave you ever lived with someone who has had a positive PPD test? NoHave you ever had an abnormal chest X-ray? NoHave you ever tested positive for HIV and/or AIDS? NoHave you ever had an organ and/or bone marrow transplant? NoHave you ever taken any immunosuppressant medications? NoHave you spent at least 30 consecutive days in a country other than the [place]? No Patient denies residence and/or work in the following settings: correctional facility, HIV/AIDS residence, homeless [facility], laboratory, assisted care facility, hospital, [facility] home, and/or other healthcare facility.Tuberculosis Screening Performed By: Ama Dalal, January 25, 2020 2:22 PMPPD ReadingToday's PPD #1 Reading Date administered: No previous PPD in database. Patient failed to return for PPD reading.Read by: Jaime RAHMAN January 27, 2020 2:02 PMAssessment & Plan Orders:[id number] Vst-Est Level I [[id number]] 09249 - Venipuncture [[id number]] Labs In-House Blood TestsDate/Time Collected: January 25, 2020 2:10 PMTest Result Reference Range Normal ValueComments: blood draw done in office, [place] titres, hard stick, managed to get a little bit. Not sure if enough, but sent to [facility] Domonique Dalal, January 25, 2020 2:24 PM PPD ReadingToday's PPD #1 Reading Date administered: No previous PPD in database. Date/Time Read: 01/27/2020 @ 2:47 PM Induration: 0mm Interpretation: negativeRead by: Jaime RAHMAN January 27, 2020 2:47 PM Name Value Range Interpretation Code Description Data Lily rce(s) Supporting Document(s) ID Date Data Source [id number] 09/14/2019 11:14:47 AM [facility] Measurements & CalculationsHeight: 62 inches (5 ft. 2 in.) 157.48 cm Weight: 287 pounds 6 oz. 130.63 kg Body Mass Index (BMI): 52.75BMI Interpretation: Morbidly ObeseBody Surface Area (BSA): 2.23Weight Management Education Done (Nutrition/Physical Activity)Vital SignsTemperature: 97.4F oral Pulse Rate: 71 beats/minuteRespiratory Rate: 16 respirations/minuteBlood Pressure: 126/85 left arm sitting automaticO2 Saturation: 98% room airVital Signs performed by: Eduard Garcia LPN, September 14, 2019 11:30 AMVital Signs performed by: Jaime RAHMAN, September 14, 2019 11:33 AMInitial Intake Information from: patientRoom #: 11Infectious Disease- Travel Have you or your sexual partner travelled outside of the country recently? NoSmoking, Tobacco or Smoke Exposure StatusSmoke Status: current every day smokerTobacco Use: YesAdv to Quit: YesPassive Smoke Exposure: YesMenstrual HistoryLast Menstrual Period (LMP): 09/07/2019Any possibility of ? YesComments: Pt would like to be tested today. Healthcare HistorySince your last office visit...Have you been admitted to the hospital? NoHave you been to an emergency room (ER) or urgent care clinic? Yes - [facility] ER- Sick symptoms Emergency room (ER) or urgent care date reported today: 09/11/2019Have you seen another healthcare provider? NoHave you seen a dentist? Yes - [facility]CFHDIntake performed by: Eduard Garcia LPN, September 14, 2019 11:18 AMRate Your HealthIn general, would you say your health is? Very GoodPain AssessmentAre you currently having any pain which... You would like your provider to address? No Affects your activity level? NoDepression Screening - PHQ-2Over the last two weeks, have you... Had little interest or pleasure in doing things? Several days Been feeling down, depressed, or hopeless? Several days PHQ-2 Score: 2Anxiety Screening - KINZA-2Over the last two weeks, have you been... Feeling nervous, anxious, or on edge? Several days Unable to stop or control worrying? Several days KINZA-2 Score: 2Infectious Disease- Travel Cont. Any possibility of ? YesGeneralized Anxiety Disorder 7-Item Screening (KINZA-7)Answer Guide:0 = Not at all1 = Several days2 = Over half the days3 = Nearly every dayOver the last 2 weeks, how often have you been bothered by the following problems?Feeling nervous, anxious, or on edge: 1Not being able to stop or control worryinWorrying too much about different things: 0Trouble relaxinBeing so restless that it's hard to sit still: 1Becoming easily annoyed or irritable: 0Feeling afraid as if something awful might happen: 0Answer Guide:0 = Not difficult at all1 = Somewhat difficult2 = Very difficult3 = Extremely difficultHow difficult have these made it for you to do your work, take care of things at home, or get along with other people? 1GAD-7 Screening Results KINZA-2 Score: 2GAD-7 Score: 4Functional Impairment: Somewhat difficultRecommendation: Minimal anxietyPHQ-9 1. Over the last 2 weeks, patient reports the following frequency of symptoms: a. Little interest or pleasure in doing things -Several days b. Feeling down, depressed, or hopeless - Several days c. Trouble falling asleep, staying asleep, or sleeping too much -Several days d. Feeling tired or having little energy -Several days e. Poor appetite or overeating -Several days f. Feeling bad about yourself, feeling that you are a failure, or feeling that you have let yourself or your family down -Not at all g. Trouble concentrating on things such as reading the newspaper or watching television -Several days h. Moving or speaking so slowly that other people could have noticed. Or being so fidgety or restless that you have been moving around a lot more than usual -Not at all i. Thinking that you would be better off or that you want to hurt y ourself in some way -Not at all2. If you checked off any problems, how difficult have these problems made it for you to do your work, take care of things at home, or get along with other people? -Somewhat DifficultToday's PHQ-9 Results Score: 6 Severity: Mild Diagnosis Recommendation: No recommendation Functional Impairment: Somewhat DifficultDepression Screening Follow-Up ActionToday's Follow-Up Action Depression follow-up done. Follow-Up Action: Prescribed antidepressant medicationPRAPARE Sociodemographic Characteristics Race: Black or Ethnicity: Not or Preferred Language: EnglishFamily and Home Address: [address] [place] [address] What is your housing situation today? I have housing Are you worried about losing your housing? NoMoney and Resources What is the highest level of school that you have finished? high school graduate Employed? No Are you seeking work? Yes Insurance: Managed Care FidelisIn the past year, have you or any family members you live with been unable to get any of the following when it was really needed? Denies Insecurity: other Admits Insecurity: food, utilities, clothing, child support specialist, phone, legal servicesIn the past year, have you had trouble affording costs associated with health insurance (such as deductibles, co-payments, etc.)? NoSocial and Emotional Health How often do you see or talk to people that you care about and feel close to? More than 5 times a week How stressed are you? A little bitAdditional Optional Domains In the past 3 months, have you spent more than 2 nights in a row in a correction, mcfp, usp center or juvenile correctional facility? No Has lack of transportation kept you from medical appointments or from getting your medications? Yes - medical and non-medicalIn the past year, have you had trouble getting any of the following when it was really needed (check all that apply)?noneIn the past year, have you had trouble paying the costs associated with health care or medicine (such as co-payments, costs for services, prices of medicines)? NoHow confident are you that you can control and manage most of your health problems? Very confident Are you a refugee? No (Country of origin: [facility]) Do you feel physically and emotionally safe where you live? Yes In the past year, have you been afraid of a partner, ex-partner? YesScreening, Brief Intervention, & Referral to Treatment (SBIRT)Pre-Screening Questions How many times have you have 4 or more drinks in a day? 0How many times have you used an illegal drug or used a prescription medication for a non-medical reason? 150Performed by: Eduard Garcia LPN, September 14, 2019 11:23 AMDAST Have yo u used drugs other than those required for medical reasons? Yes Do you abuse more than one drug at a time? No Are you always able to stop using drugs when you want to? Yes Have you ever had blackouts or flashbacks as a result of drug use? No Do you ever feel bad or guilty about your drug use? No Does your spouse (or parents) ever complain about your involvement with your drugs? No Have you neglected your family because of your use of drugs? No Have you engaged in illegal activities in order to obtain drugs? No Have you ever experienced withdrawal symptoms (felt sick) when you stopped taking drugs? No Have you had medical problems as a result of your drug use (e.g. memory loss, hepatitis, convulsions, bleeding)? Xena's Results: DAST Score: 1 DAST Interpretation: Brief Intervention Performed by: Eduard Garcia LPN, September 14, 2019 11:23 AMPatient History Medical History:AsthmaHypertensionSleep apneaSurgical History: section- last in 2013Appende ctomyAdenoidectomyTonsillectomyAbcess surgeryCarpal tunnel surgery Family History:Hypertension (Mother)Lupus (Mother)Hypertension (Father)Cancer - Prostate (Father)Social/Personal History: Smoking Status: current every day smokerAdvised to Quit/Tobacco Education: YesChief ComplaintEst care History of Present Illness (HPI)Pt is a 34 y/o female, presents to establish care today.Pt reports family hx of HTN. Pt reports since her last with 2012, her blood pressure has been intermittently elevated. Previously took medication, stopped in 2018 because she didn't like taking medication. Pt previously used [facility] on [address] in [place].Pt was seen in [facility] ER recently for flu-like symptoms. Pt requesting test today. Moved to [place] from [place], lives with her 5 children in a [facility]. Reports feeling safe in current living situation and has no concerns regarding this at this time. Pt previously was taking Prozac and would like to resume this. Pt would like breast reduction, has been in ongoing discussion for years about this with her prior PCP in [place]. HPI performed by: Jaime RAHMAN, September 14, 2019 11:33 AMTransitions of Care InboundProblem ReviewProblem List was reviewed and/or updated during this visit.Medication Reconciliation & ReviewMedication List was reviewed and/or updated during this visit, including review of any nuex-ryy-smyiwtr medications, herbal therapies, and/or supplements.Allergy ReviewAllergy List was reviewed and/or updated during this visit.Adult Preventive CareProvider Calculated and Reviewed all Clinical Protocols for patient today. Screening Tobacco Screening: Smoking Status: current every day smoker (09/14/2019) Advised to Quit: Yes (09/14/2019)Labs/Meds/Other Counseling-Nutrition and Physical Activity:BMI Interpretation: Morbidly Obese (09/14/2019) Counseling: Done (09/14/2019) Physical Activity: Done (09/14/2019)Cancer Screening Pap Smear/HPV TestingReviewed: Today's Comments: Pt would like a referral for this. Review of Systems General: Denies loss of appetite, chills, dizziness, fatigue, fever, headache, feeling ill, sweats. Eyes: Denies blurring of vision, double vision. Ears/Nose/Throat: Denies earache, nasal congestion, sore throat, swollen glands. Cardiovascular: Denies chest pain, palpitations, feeling faint. Respiratory: Denies difficulty breathing, coughing up blood, wheezing. mild cough, improvingBreast: complaining of large breasts all her life, causing pain to the breasts themselves and to her backGastrointestinal: Denies nausea, vomiting, diarrhea, pain or discomfort. Musculoskeletal: Complains of back pain. Denies recent injury. Neurologic: Denies weakness, feeling faint. Psychiatric: Complains of depression, anxiety, feeling stressed. Denies suicidal ideation, homicidal ideation. Physical ExamGeneral Appearance: well hydrated, no acute distress, obese female, significantly enlarged grossly symmetrical pendulous breastsEyes, External: conjunctivae and lids normal, EOMIRespiratory, Auscultation: clear to auscultation bilaterally; no rales, rhonchi, or wheezesRespiratory, Effort: no intercostal retractions or use of accessory musclesCardiovascular, Auscultation: S1, S2 audible; no murmur, rub, or gallop; RRRPeripheral Circulation: no clubbing, cyanosis, edema, or varicositiesAbdomen: soft, non-tender, no masses, bowel sounds normalGait & Station: normalSkin, Inspection: no rashes, lesions, or ulcerationsOrientation: oriented to time, place, and personMood & Affect: mild depression, tearful at times, thought proc ess logical and goal directedJudgment & Insight: intactCare Management Plan Transitions of CareInboundRate Your HealthIn general, would you say your health is? Very GoodAssessment & Plan Problems:Added: Tobacco use (ICD-305.1) (ICD10- Z72.0)Passive smoke exposure (ICD-V15.89) (ZVV91-K32.22)Encounter for general adult medical examination with abnormal findings (ICD-V70.0) (CRU36-E60.01) Assessment: Instructions: Recommend annual medical appointments. Recommend routine dental and vision care.MORBID OBESITY (ICD-278.01) (PZK14-J78.01) Assessment: Instructions: Fasting labs have been ordered for you today. When labs are drawn, please ensure that you have had nothing to eat or drink for 8-10 hours prior to the blood drawn. Water or black coffee is OK to have before the blood draw.BMI 50.0-59.9 (ICD-V85.43) (YNJ65-G78.43) Assessment: Instructions: Recommend healthy lifestyle modification. Encourage portion control, healthy food choices, and increasing routine physical activity. Recommendation is for 150 minutes throughout the week of cardiovascular exercise.Exacerbation of intermittent asthma (ICD-493.90) (YWY20-I27.21) Assessment: Instructions: Continue current regimen. Call for any worsening or persistant symptoms.Large breast (ICD-611.1) (ALP35-E14) Assessment: Instructions: Will generate plastic surgeon referral. Also recommend you discuss with INFRASTRUCTURE ANALYST.Encounter for gynecological examination (general) (routine) without abnormal findings (QPO31-B51.419) Assessment: Instructions: Referred for routine well woman exam/pap and tubal ligation discussion.Cont raception care education (ZDM70-N79.09) Assessment: Instructions: Negative test today. Recommend condoms or abstinence, offerred control while we wait for tubal discussion but you declined today. Make an appt if you'd like to start this in the future.Benign hypertension (ICD-401.1) (ICD10- I10) Assessment: Instructions: Check labs, consider restarting prior amlodipine 5mg once daily if BP is elevated at upcoming nurse visit/lab draw. Recommend reduced salt intake, cut back on caffeine and alcohol, increase physical activity. We reviewed the assisted risks associated with uncontrolled high blood pressure, including stroke and heart attack. Goal BP is <140/90, please call the office if your blood pressures are consistently running higher than that cutoff. Call 911 or report to the closest ER for chest pain, shortness of breath, dizziness, or passing out.Major depressive disorder, single episode, mild (APO24-W62.0) Assessment: Instructions: Restart prior Prozac today as you report doing well with this previously. Referral generated to counseling services.Assessment not Saved Contraception care education (ICD10- Z30.09): Patient Instructions/Care Plan: Encounter for general adult medical examination with abnormal findings: Recommend annual medical appointments. Recommend routine dental and vision care.MORBID OBESITY: Fasting labs have been ordered for you today. When labs are drawn, please ensure that you have had nothing to eat or drink for 8-10 hours prior to the blood drawn. Water or black coffee is OK to have before the blood draw.BMI 50.0-59.9: Recommend healthy lifestyle modification. Encourage portion control, healthy food choices, and increasing routine physical activity. Recommendation is for 150 minutes throughout the week of cardiovascular exercise.Exacerbation of intermittent asthma: Continue current regimen. Call for any worsening or persistant symptoms.Large breast: Will generate plastic surgeon referral. Also recommend you discuss with INFRASTRUCTURE ANALYST.Encounter for gynecological examination (general) (routine) without abnormal findings: Referred for routine well woman exam/pap and tubal ligation discussion.Contraception care education: Negative test today. Recommend condoms or abstinence, offerred control while we wait for tubal discussion but you declined today. Make an appt if you'd like to start this in the future.Benign hypertension: Check labs, consider restarting prior amlodipine 5mg once daily if BP is elevated at upcoming nurse visit/lab draw. Recommend reduced salt intake, cut back on caffeine and alcohol, increase physical activity. We reviewed the long term care administrator risks associated with uncontrolled high blood pressure, including stroke and heart attack. Goal BP is <140/90, please call the office if your blood pressures are consistently running higher than that cutoff. Call 911 or report to the closest ER for chest pain, shortness of breath, dizziness, or passing out.Major depressive disorder- single episode- mild: Restart prior Prozac today as you report doing well with this previously. Referral generated to counseling services. Plan developed in collaboration with patient and/or familyMedications:PROZAC 20 MG ORAL CAPSULEFLONASE ALLERGY RELIEF 50 MCG/ACT NASAL SUSPENSIONALBUTEROL SULFATE (2.5 MG/3ML) 0.083% INHALATION NEBULIZATION SOLUTIONVENTOLIN HFA 108 (90 BASE) MCG/ACT INHALATION AEROSOL SOLUTIONAMOXICILLIN 500 MG CAPSMedication Changes:Added: VENTOLIN HFA 108 (90 BASE) MCG/ACT INHALATION AEROSOL SOLUTION- inhale 2 puffs Prn sobALBUTEROL SULFATE (2.5 MG/3ML) 0.083% INHALATION N EBULIZATION SOLUTION-use one vial q0rLGLSKEC ALLERGY RELIEF 50 MCG/ACT NASAL SUSPENSION-inhale 2 puffs intranasally dailyNew Prescription:PROZAC 20 MG ORAL CAPSULE-Take 1 tablet by mouth once daily Qty: 30[Capsule] Refills: 2 Method: ElectronicAllergies:* SEASONAL (Critical)Orders:HCG [CPT-49386] Preventive, New, (18-39) [CPT-34004] Surgical Consult [CPT-05282] Follow-Up Return to clinic: in 3 months for follow upAdditional Follow-Up: referral follow-upClinical Visit Summary CompletedMultiple Vital SignsInitial BP: 135/98Vitals #2BP: 126/85 (primary)Performed by: Jaime RAHMAN, September 14 020 12:00 PMMedications:PROZAC 20 MG ORAL CAPSULE (FLUOXETINE HCL) Take 1 tablet by mouth once daily #30[Capsule] x 2 Route:ORAL Entered and Authorized by: Jaime RAHMAN Method used: Electronically to [facility] (retail) [address] [place] [address] Note to Pharmacy: Route: ORAL; Indications: MAJOR DEPRESSIVE DISORDER, SINGLE EPISODE, MILD RxID: [id number] signed by Jaime RAHMAN on 09/20/2019 at 9:17 AM Name Value Range Interpretation Code Description Data Lily rce(s) Supporting Document(s) ID Date Data Source [id number] 08/01/2019 07:37:[address] [facility] [address] [facility] Emergency Department [address] [place] [address] Phone #: ext- [phone] 08/01/2019 18:52 [id number] Sex: F : 1985 Age: 34yWEIGHT:127.0 kg (S) HEIGHT:62 inches (S) BMI:51.3ALLERGIES: No Known Drug AllergyCHIEF COMPLAINT: back painDIAGNOSIS: Lumbar sprainLAB ORDERSOrder Description Priority Entered Acknowledged InitialedUrinalysis (Clean STAT 21:17 08/01/2019 Ack'd: 21:18 21:24 Jaquan Shane) Sascha Allen Jennifer R.N. M.D.; Melissa HutchisonHCG Urine Qual STAT 21:17 08/01/2019 Ack'd: 21:18 21:24 Clare Shane Riccardo McCormick, Jennifer R.N. M.D.; Melissa HutchisonDIAGNOSTIC STUDY ORDERSOrder Description Priority Entered Acknowledged InitialedMEDICATION/IV/DRIP/FLUID ORDERSOrder Description Priority Entered Acknowledged InitialedToradol IM 30 mg 21:17 08/01/2019 Ack'd: 21:18 21:24 Clare Shane Riccardo McCormick, Jennifer R.N. M.D.; Melissa HutchisonLidocaine Patch 21:17 08/01/2019 Ack'd: 21:18 21:24 Acosta,Topical (Patch 5 %) Sascha Allen Jennifer R.N.1 Patch (On for 12 M.D.; Melissa Hutchisonhours, off for 12hours.)GENERAL ORDERSOrder Description Priority Entered Acknowledged Initialed[Electronically signed by Melissa Dickinson R.N. (22:29 08/01/2019)][Electronically signed by Sascha Allen M.D. (22:32 08/01/2019)][Electronically locked by Melissa Dickinson R.N. (22:29 08/01/2019)] Name Value Range Interpretation Code Description Data Lily rce(s) Supporting Document(s) ID Date Data Source [id number] 08/01/2019 07:37:[address] [facility] [address] [facility] Emergency Department [address] [place] [address] Phone #: ext- [phone] 08/01/2019 18:52 Patient: DIANA GOMEZ Sex: F : 1985 Age: 34yWeight: 127.0 kgHeight/Length: 62 in.BMI: 51.3ALLERGIES: No Known Drug AllergyThe patient's Home Medications are listed below:CONTINUE TAKING THE FOLLOWING MEDICATIONS: Flonase Allergy Relief Nasal Unknown BP medicationThe source(s) of the original Home Medication information:patientThe following Medications were given to the patient in the Emergency Department:Toradol [IM] IM 30 mg, administered: 08/01/2019 9:22:00 PMLidocaine Patch Transdermal 1 patch, administered: 08/01/2019 9:24:00 PMThe following Medications were prescribed to the patient:ibuprofen 600 mg tablet Take 1 tablet four times a day as needed for pain for 7 days -- Dispense 28tablet. Refills: 0. Substitution permitted.[facility] - [address] [place] [address]. .Lidoderm 5 % topical patch Apply 1 patch once a day for 7 days -- Take off after 12 hrs. Dispense 7patch. Refills: 0. Substitution permitted.[facility] - [address] [place] [address]. . -- aSscha Allen M.D. Name Value Range Interpretation Code Description Data Lily rce(s) Supporting Document(s) ID Date Data Source [id number] 08/01/2019 07:37:[address] [facility] [address] [facility] Emergency Department [address] [place] [address] Phone #: ext- [phone] 08/01/2019 18:52 Patient: DIANA GOMEZ Sex: F : 1985 Age: 34yWeight: 127.0 kgHeight/Length: 62 inBMI: 51.3ALLERGIES: No Known Drug Allergy Date/Time Medication Administered Medication OrderedGiven TORADOL [IM] (KETOROLAC Toradol IM 30 mg21:22 08/01/2019 TROMETHAMINE)Melissa Shane R.N. Dose: 30 mg IMGiven LIDOCAINE PATCH Lidocaine Patch Topical (Patch 521:24 08/01/2019 Dose: 1 patch Ointment Transdermal %) 1 Patch (On for 12 hours, Melissa Louie R.N. for 12 hours.) Name Value Range Interpretation Code Description Data Lily rce(s) Supporting Document(s) ID Date Data Source [id number] 08/01/2019 07:37:[address] [facility] [address] [facility] Emergency Department [address] [place] [address] Phone #: ext- [phone] 08/01/2019 18:52 Patient: DIANA GOMEZ Sex: F : 1985 Age: 34yAcute lumbar strain.INSTRUCTIONSWarnings: GENERAL WARNINGS: Return or contact your physician immediately if your conditionworsens or changes unexpectedly, if not improving as expected, or if other problems arise.SPECIFICALLY, return if you develop weakness of the foot or leg, numbness, tingling, pain or incontinenceof feces (loss of bowel control) or urine (loss of bladder control).Your Current Medications: Your current home medications have been reviewed.CONTINUE TAKING THE FOLLOWING MEDICATIONS:Flonase Allergy Relief Nasal.Unknown BP medication*.Prescription Medications:ibuprofen 600 mg tablet Take 1 tablet four times a day as needed for pain for 7 days -- Dispense 28tablet. Refills: 0. Substitution permitted.[facility] - [address] [place] [address]. .Lidoderm 5 % topical patch Apply 1 patch once a day for 7 days -- Take off after 12 hrs. Dispense 7patch. Refills: 0. Substitution permitted.[facility] - [address] [place] [address]. Phone: .Follow-up:Return to the emergency department as needed. Follow up with your healthcare provider in five dayseven if well. Call for an appointment. Reason for referral: evaluation and treatment. Summary of careprovided to patient via paper.Understanding of the discharge instructions verbalized by patient. Expected course of injury, dischargeinstructions, activity level, diet, prescriptions x2, follow-up appointment and risks and benefits of treatmentreviewed with patient and understanding verbalized. Agrees to plan of care. ADDITIONAL INFORMATIONBack Pain (Acute or Chronic) [address] [facility] Emergency Department [address] [place] [address] Phone #: ext- [phone] 08/01/2019 18:52 Patient: DIANA GOMEZ Sex: F : 1985 Age: 34yBack pain is one of the most common problems. The good news is that most people feel better in 1 to2 weeks, and most of the rest in 1 to 2 months. Most people can remain active.People who have pain describe it differently--not everyone is the same. The pain can be sharp, stabbing, shooting, aching, cramping or burning. Movement, standing, bending, lifting, sitting, or walking may worsen pain. It can be localized to one spot or area, or it can be more generalized. It can spread or radiate upwards, to the front, or go down your arms or legs (sciatica). It can cause muscle spasm.Most of the time, mechanical problems with the muscles or spine cause the pain. Mechanicalproblems are usually caused by an injury to the muscles or ligaments. While illness can cause backpain, it is usually not caused by a serious illness. Mechanical problems include: [address] [facility] Emergency Department [address] [place] [address] Phone #: ext- [phone] 08/01/2019 18:52 Patient: DIANA GOMEZ Sex: F : 1985 Age: 34y Physical activity such as sports, exercise, work, or normal activity Overexertion, lifting, pushing, pulling incorrectly or too aggressively Sudden twisting, bending, or stretching from an accident, or accidental movement Poor posture Stretching or moving wrong, without noticing pain at the time Poor coordination, lack of regular exercise (check with your doctor about this) Spinal disc disease or arthritis StressPain can also be related to , or illness like appendicitis, bladder or kidney infections, pelvicinfections, and many other things.Acute back pain usually gets better in 1 to 2 weeks. Back pain related to disk disease, arthritis in thespinal joints or spinal stenosis (narrowing of the spinal canal) can become chronic and last for monthsor years.Unless you had a physical injury (for example, a car accident or fall) X-rays are usually not needed forthe initial evaluation of back pain. If pain continues and does not respond to medical treatment,X-rays and other tests may be needed.Home careTry these home care recommendations: When in bed, try to find a position of comfort. A firm mattress is best. Try lying flat on your back with pillows under your knees. You can also try lying on your side with your knees bent up towards your chest and a pillow between your knees. At first, do not try to stretch out the sore spots. If there is a strain, it is not like the good soreness you get after exercising without an injury. In this case, stretching may make it worse. Don't sit for long periods, as in a long car ride or during other travel. This puts more stress on the lower back than standing or walking. During the first 24 to 72 hours after an acute injury or flare up of chronic back pain, apply an ice pack to the painful area for 20 minutes and then remove it for 20 minutes. Do this over a period of 60 to 90 minutes or several times a day. This will reduce swelling and pain. Wrap the ice pack in a thin towel or plastic to protect your skin. You can start with ice, then switch to heat. Heat (hot shower, hot bath, or heating pad) reduces pain and works well for muscle spasms. Heat can be applied to the painful area for [address] [facility] Emergency Department [address] [place] [address] Phone #: ext- [phone] 08/01/2019 18:52 Patient: DIANA GOMEZ Sex: F : 1985 Age: 34y minutes then remove it for 20 minutes. Do this over a period of 60 to 90 minutes or several times a day. Do not sleep on a heating pad. It can lead to skin victor or tissue damage. You can alternate ice and heat therapy. Talk with your doctor about the best treatment for your back pain. Therapeutic massage can help relax the back muscles without stretching them. Be aware of safe lifting methods and do not lift anything without stretching first.MedicinesTalk to your doctor before using medicine, especially if you have other medical problems or are takingother medicines. You may use vnrq-zat-[id number] medicine as directed on the bottle to control pain, unless another pain medicine was prescribed. If you have chronic conditions like diabetes, liver or kidney disease, stomach ulcers, or gastrointestinal bleeding, or are taking blood thinners, talk to your doctor before taking any medicine. Be careful if you are given a prescription medicines, narcotics, or medicine for muscle spasms. They can cause drowsiness, affect your coordination, reflexes, and judgement. Do not drive or operate heavy machinery.Follow-up careFollow up with your healthcare provider, or as advised.A radiologist will review any X-rays that were taken. Your provide will notify you of any new findingsthat may affect your care.Call [phone] if any of the following occur: Trouble breathing Confusion Very drowsy or trouble awakening Fainting or loss of consciousness Rapid or very slow heart rate Loss of bowel or bladder control [address] [facility] Emergency Department [address] [place] [address] Phone #: ext- [phone] 08/01/2019 18:52 Patient: DIANA GOMEZ Sex: F : 1985 Age: 34yWhen to seek medical adviceCall your healthcare provider right away if any of these occur: Pain becomes worse or spreads to your legs Weakness or numbness in one or both legs Numbness in the groin or genital area [id number] [place] [address]. All rights reserved. This information is not intended as asu bstitute for professional medical care. Always follow your healthcare professional's instructions. You have been given the following additional information: Back Pain (Acute or Chronic)(Electronically signed by Sascha Allen M.D. 08/01/2019 22:32) Name Value Range Interpretation Code Description Data Lily rce(s) Supporting Document(s) ID Date Data Source [id number] 08/01/2019 07:37:[address] [facility] 1 Clinical Report - Nurses [facility] Emergency Department [address] [place] [address] Phone #: [phone] 08/01/2019 18:52 Patient: DIANA GOMEZ Sex: F : 1985 Age: 34yTRIAGEArrived by private vehicle. Historian: patient. Accompanied by sister.Triage time: 19:04 08/01/2019. Acuity: LEVEL 4.Chief Complaint: BACK PAIN.Alert. No acute distress.Onset. (1 week ago). ( Pt states she has been having right lower back pain for the past week, no knowninjury. Pt denies urinary complaints.). No history of recent trauma. ( Pt denies incontinence). 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 (last dose at 0800).SEPSIS SCREEN: NEGATIVE. Negative (no infection suspected/documented). (19:08 08/01/2019).--19:08/01/19 Melissa Dickinson R.N.19:04 08/01/19. BP: 148/101. MAP: 116. HR: 93. RR: 18. O2 saturation: 95% on room air. Temp: 98.1 F(temporal). Pain level now: 01/24. --19:08 08/01/19 Melissa Dickinson R.N.Weight: 127 kg stated. Height/Length: 62 inches Per Patient. BMI: 51.3. --19:03 08/01/19 Melissa Dickinson R.N.MedicationsFlonase Allergy Relief Nasal. --19:05 08/01/19 Melissa Dickinson R.N. Unknown BP medication. --19:06 08/01/19 Melissa Dickinson R.N.AllergiesNo Known Drug Allergy. --19:06 08/01/19 Melissa Dickinson R.N.PROBLEMS:Obstructive Sleep Apnea. --19:07 08/01/19 Melissa Dickinson R.N.Hypertension. --21:21 08/01/19 Sascha Allen M.D.The following entry was modified by Sascha Allen M.D., 21:21 08/01/19Hypertension. --19 :06 08/01/19 Melissa Dickinson R.N..Medication/allergy information source: the patient. --19:08 08/01/19 Melissa Dickinson R.N.ADDITIONAL SURGERIES:Adenoidectomy. 2 Clinical Report - Nurses [facility] Emergency Department [address] [place] [address] Phone #: ext- [phone] 08/01/2019 18:52 Patient: DIANA GOMEZ Sex: F : 1985 Age: 34y Appendectomy. . Iabscess right buttocks. Tonsillectomy. --19:07 08/01/19 Melissa Dickinson R.N. History PAST MEDICAL HX: Tetanus status: up-to-date. Immunizations: up-to-date. Last normal menstrual period- 07/06/19. SOCIAL HX: Current every day light tobacco smoker (cigarette)- less than 1/2 a p ack per day. Occasional alcohol use. No drug use. The patient was offered HIV testing but declined. Patient education was provided. The patient was offered hepatitis C testing but declined. Patient education was provided. The patient has not traveled outside the [place] Infectious disease exposure: No infectious disease exposure. Patient is not a known carrier of tuberculosis, hepatitis, HIV, MRSA or VRE. Patient is not a known carrier of CRE. SELF HARM ASSESSMENT: Self harm assessment was performed. The patient answered "no" to the question(s) "Have you recently felt down, depressed, or hopeless?", "Do you have thoughts of harming or killing yourself?", "Do you have a plan for harming or killing yourself?", "Have you recently had thoughts about harming or killing others?", "Do you have any dangerous items in your possession?", "Have you noticed less interest or pleasure in doing things?", "Are you here because you tried to hurt yourself?" and "Have you ever tried to hurt yourself before today?". ABUSE ASSESSMENT: Abuse assessment. The patient had positive responses to the question(s) "Do you feel safe in your home?". Abuse denied. No suspicion of abuse. No report of abuse. NUTRITIONAL RISK ASSESSMENT: The nutritional risk assessment revealed no deficiencies. FUNCTIONAL ASSESSMENT: Functional ass essment: no impairments noted. LEARNING NEEDS ASSESSMENT: The learning needs assessment revealed no barriers. FALL RISK ASSESSMENT: Fall risk assessment completed. No risk factors identified. SKIN INTEGRITY ASSESSMENT: Skin integrity risk assessment completed. No skin integrity risk identified. --19:08/01/19 Melissa Dickinson R.N. Interventions Identification band on patient. --19:08/01/19 Melissa Dickinson R.N.PHYSICAL ASSESSMENTGENERAL / NEURO / PSYCH: Alert. Oriented X 4.RESPIRATORY: Respirations not labored. Chest nontender. Breath sounds within normal limits.CVS: Capillary refill less than 2 seconds.GI / : Abdomen soft and nontender. Bowel sounds within normal limits. 3 Clinical Report - Nurses [facility] Emergency Department [address] [place] [address] Phone #: ext- [phone] 08/01/2019 18:52 Patient: DIANA GOMEZ [facility]#: [id number] Sex: F : 1985 Age: 34y EXTREMITIES: Sensation intact in extremities. ROM of extremities within normal limits. BACK: Normal inspection of the neck and back. Limited ROM of the back. --20:53 08/01/19 Vanadna Cruz R.N.NURSING PROGRESS NOTESThe patient is calm and resting quietly. ( Pt calm, talking to sister, playing on phone, NAD). --19: Melissa Dickinson R.N. Two patient identifiers checked. Side rails up. Bed placed in lowest position. Brakes of bed on. --20:53 08/01/19 Vandana Cruz R.N. 21:22 08/01/2019 Toradol (Ketorolac Tromethamine) IM 30 mg given. Given in the right deltoid. Allergies verified and confirmed 5 rights. Information reviewed with patient including reason for taking this medication, signs of allergic reaction and precautions. Verbalizes understanding. --21:24 08/01/19 Melissa Shane R.N. 21:24 08/01/2019 Lidocaine Patch Transdermal Ointment 1 patch given. Applied to the affected area. Allergies verified and confirmed 5 rights. Information reviewed with patient including reason for taking this medication, signs of allergic reaction and precautions. Verbalizes understanding. (TO LOW RIGHT SIDE OF BACK). --21:24 08/01/19 Melissa Shane R.N.DISPOSITION / DISCHARGE Departure time: 22:28 08/01/2019. Condition at departure: stable. No learning barriers present. Discharge instructions provided and reviewed with the patient. Reviewed warnings (please see paper copy). Reviewed medication(s) side effects, precautions, dosing and course information. Prescription(s) sent electronically to pharmacy (ibuprofen, lidocaine). Patient verbalized understanding. Written instructions provided in [place]. The patient was discharged by the physician. She was discharged home and accompanied by family. She left ambulatory and via private vehicle. Family member driving. --22:28 08/01/19 Melissa Dickinson R.N. 22:27 08/01/19. BP: 143/97. MAP: 112. HR: 78. RR: 16. O2 saturation: 100% on room air. Temp: 97.9 F (tympanic). Pain level now: 4/10. --22:28 08/01/19 Melissa Dickinson R.N.Locked/Released at 08/01/2019 22:29 by Melissa Dickinson R.N. Name Value Range Interpretation Code Description Data Lily e(s) Supporting Document(s) ID Date Data Source [id number] 08/01/2019 07:37:00 PM [facility] 1 Clinical Report - Physicians/[facility] Emergency Department [address] [place] [address] Phone #: ext- [phone] 08/01/2019 18:52 Patient: DIANA GOMEZ Sex: F : 1985 Age: 34y Time Seen: 21:14 08/01/2019; initial patient contact. Arrived- By private vehicle. Historian- patient. Disposition decision: 22:22 08/01/2019.HISTORY OF PRESENT ILLNESS Chief Complaint: BACK PAIN. Onset- 1 weeks ago. It has been intermittent. It is described as being mild and in the area of the right lower lumbar spine. The quality is noted to be dull and aching. No radiation. Modifying factors- worsened by bending over and lifting. No bladder dysfunction, bowel dysfunction, sensory loss or motor loss. Patient denies an injury. No injury to the head or neck. Similar symptoms previously. Patient has had similar symptoms occasionally. Recent medical care: Not recently seen/assessed.REVIEW OF SYSTEMSNo fever, chills, eye irritation, difficulty with urination or urinary frequency. No hematuria, skin rash,headache, depression or sore throat. No cough, difficulty breathing, chest pain, abdominal pain ornausea. No vomiting, diarrhea, black stools or bloody stools. All other systems reviewed and arenegative.PAST HISTORYSee nurses notes. Problems: Hypertension. Sleep Apnea. Obesity. Obstructive Sleep Apnea. Additional Surgeries: Adenoidectomy. Appendectomy. Carpal Tunnel Surgery. . Iabscess right buttocks. Tonsillectomy. Medications: Unknown BP medication. Flonase Allergy Relief Nasal. Allergies: 2 Clinical Report - Physicians/[facility] Emergency Department [address] [place] [address] Phone #: ext- [phone] 08/01/2019 18:52 Patient: DIANA GOMEZ Sex: F : 1985 Age: 34y No Known Drug Allergy.SOCIAL HISTORYLight tobacco smoker- less than 1/2 a pack per day. Occasional alcohol use. No drug use.ADDITIONAL NOTESThe nursing notes have been reviewed with agreement regarding the chief complaint, HPI, ROS, PMH andpatient medications and allergies.PHYSICAL EXAMVital Signs: 08/01/2019 19:04 BP: 148/101. MAP: 116. HR: 93. RR: 18. O2 saturation: 95% on room air.Temp: 98.1 F. Pain level now: 610. Have been reviewed. Oxygen saturation normal.Appearance: Alert. No acute distress.HEENT: Normal external inspection.Eyes: Pupils equal, round and reactive to light.ENT: Pharynx normal.Neck: Normal inspection. Neck nontender. Painless ROM.CVS: Heart sounds normal. Pulses normal.Respiratory: No respiratory distress. Painless inspiration. Breath sounds normal.Abdomen: No visible injury. Soft and nontender. Bowel sounds normal. No organomegaly. No mass.Femoral pulses equal. Moderately obese.Back: Normal inspection. Painless ROM. Mild soft tissue tenderness in the right lower lumbar area.Skin: Skin warm and dry. Normal skin color. No rash. Normal skin turgor.Extremities: Extremities exhibit normal ROM. Extremities nontender.Neuro: Oriented X 3. Mood/affect normal. No motor deficit. No sensory deficit. Straight leg raising:negative on the right and negative on the left. Reflexes normal.LABS, X-RAYS, AND EKGLaboratory Tests: Laboratory tests have been ordered, with results reviewed and considered in themedical decision making process. Urinalysis: (UCHE: 08/01/2019 21:15) ( MsgRcvd 08/01/2019 21:33) Final results Test Result Flag Units (Reference) URINALYSIS URINALYSIS SOURCE R COLOR yellow (NORMAL: Yello CLARITY clear (NORMAL: Clear SPEC GRAVITY 1.010 (1.001 - 1.030 pH 7 (5 - 9) GLUCOSE NORM (NORMAL: Negat BILIRUBIN NEG (NORMAL: Negat KETONE NEG (NORMAL: Negat PROTEIN NEG (NORMAL: Negat NITRITE NEG (NORMAL: Negat BLOOD NEG (NORMAL: Negat LEUK EST 500 A (NORMAL: Negat UROBILINOGEN 1 (less than 1.0 MICROSCOPIC See Below WBC 0 - 1 (NORMAL: NONE EPITHELIAL MANY A (NORMAL: NONE BACTERIA Trace (NORMAL: NONE 3 Clinical Report - Physicians/Mid [facility] Emergency Department [address] [place] [address] Phone #: ext- [phone] 08/01/2019 18:52 Patient: DIANA GOMEZ Sex: F : 1985 Age: 34y Beta-HCG, Qual Urine: (UCHE: 08/01/2019 21:20) ( MsgRcvd 08/01/2019 21:31) Final results Test Result Flag Units (Reference) HCG URINE QUAL NEGATIVE (NORMAL: NEGAT HCG URINE QL REENTER NEGATIVE (NORMAL: NEGAT { KIT LOT # [id number] ){ KIT EXP DATE 11/08/20 ){ P ROCEDURAL CONTROL VALID ).PROGRESS AND PROCEDURESCourse of Care: 21:23 08/01/19. very mild lumbar strain, no evidence of discomfort during exam, willcheck UA, and give Toradol and Lidocaine 22:21 08/01/19. UA nml, pt much improved, will d/c home w instructions. Patient counseled in person regarding the patient's stable condition, test results, diagnosis and need for follow-up. Patient agrees with plan of care. Disposition: Condition: good and stable. Discharge decision based on the following: patient's condition is stable; patient's condition is improved; patient is ambulatory; patient is active; patient drinking fluids; patient eating; patient's pain is controlled; patient's exam is improved; no abnormal test results; improving condition on multiple repeat evaluations; social support is good; transportation is available; follow-up is available; clinical impression is consistent with outpatient treatment.CLINICAL IMPRESSION Acute lumbar strain.INSTRUCTIONS Warnings: GENERAL WARNINGS: Return or contact your physician immediately if your condition worsens or changes unexpectedly, if not improving as expected, or if other problems arise. SPECIFICALLY, return if you develop weakness of the foot or leg, numbness, tingling, pain or incontinence of feces (loss of bowel control) or urine (loss of bladder control). Your Current Medications: Your current home medications have been reviewed. CONTINUE TAKING THE FOLLOWING MEDICATIONS: Flonase Allergy Relief Nasal. Unknown BP medication*. Prescription Medications: 4 Clinical Report - Physicians/[facility] Emergency Department [address] [place] [address] Phone #: ext- [phone] 08/01/2019 18:52 Patient: DIANA GOMEZ [facility]#: [id number] Sex: F : 1985 Age: 34y ibuprofen 600 mg tablet Take 1 tablet four times a day as needed for pain for 7 days -- Dispense 28 tablet. Refills: 0. Substitution permitted. [facility] [id number] [place] [address]. . Lidoderm 5 % topical patch Apply 1 patch on ce a day for 7 days -- Take off after 12 hrs. Dispense 7 patch. Refills: 0. Substitution permitted. [facility] [id number] [place] [address]. . Follow-up: Return to the emergency department as needed. Follow up with your healthcare provider in five days even if well. Call for an appointment. Reason for referral: evaluation and treatment. Summary of care provided to patient via paper. Understanding of the discharge instructions verbalized by patient. Expected course of injury, discharge instructions, activity level, diet, prescriptions x2, follow-up appointment and risks and benefits of treatment reviewed with patient and understanding verbalized. Agrees to plan of care.(Electronically signed by Sascha Allen M.D. 08/01/2019 22:32) Name Value Range Interpretation Code Description Data Lily rce(s) Supporting Document(s) ID Date Data Source [id number] 08/01/2019 09:31:00 PM [facility] Name Value Range Interpretation Code Description Data Lily rce(s) Supporting Document(s) HCG URINE QUAL NEGATIVE NORMAL: NEGATIVE [facility] HCG URINE QL REENTER NEGATIVE NORMAL: NEGATIVE Ca [facility] { KIT LOT # [id number] ){ KIT EXP DATE 11/08/20 ){ PROCEDURAL CONTROL VALID ) ID Date Data Source [id number] 08/03/2019 07:23:00 PM [facility] Name Value Range Interpretation Code Description Data [facility] rce(s) Supporting Document(s) CULTURE URINE [facility] spital _CULTURE URINE_ [place] [address] CLIA# [id number] SEE SCANNED REPORT Specimen site Narrative R [facility] Result: ID Date Data Source [id number] 08/01/2019 09:33:[address] [facility] Name Value Range Interpretation Code Description Data Lily rce(s) Supporting Document(s) [facility] COL[facility] yellow NORMAL: Yellow [facility]spital CLARITY clear NORMAL: Clear [facility] Ho spital Specific gravity of Urine by Test strip 1.010 1.001 - 1.030 [facility] pH 7 5 - 9 [facility] al Glucose [Mass/volume] in Urine by Test strip NORM NORMAL: Negat [facility] Bilirubin.total [Presence] in Urine by Test strip NEG NORMAL: Negative [facility] Ketones [Presence] in Urine by Test strip NEG NORMAL: Negative [facility] Protein [Mass/volume] in Urine by Test strip NEG NORMAL: Negat [facility] Nitrite [Presence] in Urine by Test strip NEG NORMAL: Negative [facility] BLOOD NEG NORMAL: Negative [facility] Leukocyte esterase [Presence] in Urine by Test strip 500 PARTHA L: Negative A [facility] Urobilinogen [Mass/volume] in Urine by Test strip 1 less laurita n 1.0 mg/dL [facility] MICROSCOPIC See Below [facility] ital WBC 0 - 1 NORMAL: NONE SEEN [facility] EPITHELIAL MANY NORMAL: NONE SEEN A [facility] Bacteria [Presence] in Urine sediment by Light microscopy Tr nikolas NORMAL: NONE SEEN [facility] Procedure
[2020-08-27] MEDS ORDERED: NS 1,000 ML IV ONE (15:45)
[2020-08-27 15:48] LABS: BASO % 0.2 % (0.0-1.0); EOS # 0.1 10^3/uL (0.0-0.5); EOS % 1.2 % (0.0-3.0); HEMATOCRIT 31.9 % (36.0-47.0); HEMOGLOBIN 9.4 g/dl (12.0-15.5); LYMPH # 1.4 10^3/uL (1.5-5.0); LYMPH % 15.4 % (24.0-44.0); MEAN CORPUSCULAR HEMOGLOBIN 25.2 pg (27.0-33.0); MEAN CORPUSCULAR HGB CONC 29.5 g/dl (32.0-36.5); MEAN CORPUSCULAR VOLUME 85.5 fl (80.0-96.0); MONO # 0.7 10^3/uL (0.0-0.8); MONO % 7.4 % (0.0-5.0); NEUTROPHILS # 6.7 10^3/uL (1.5-8.5); NEUTROPHILS % 75.1 % (36.0-66.0); PLATELET COUNT, AUTOMATED 402 10^3/uL (150-450); RED BLOOD COUNT 3.73 10^6/uL (4.00-5.40)
--- NOTE | 2020-08-27 15:59 | REP ---
INDICATION: CHEST PAIN-37 wks pregn COMPARISON: 09/07/2019 TECHNIQUE: Portable AP view of the chest FINDINGS: The mediastinum and cardiac silhouette are stable and within normal limits for portable technique. The lung he are clear without acute consolidation, effusion, or pneumothorax. Skeletal structures are intact. IMPRESSION: No acute cardiopulmonary process appreciated. <Electronically signed by Ori Gamino > 08/27/20 [id number]
--- OUTSIDE RECORDS SUMMARY | 2020-08-27 16:13 | CCD ---
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 08/01/2019 18:52 Patient: DIANA GOMEZ Sex: F [...] room air.Temp: 98.1 F. Pain level now: 01/24. Have been reviewed. Oxygen saturation normal.Appearance: Alert. [...] NONE 3 Clinical Report - Physicians/Mid Levels [facility] Emergency Department [address] [place] [address] Phone #: ext- [phone] 08/01/2019 18:52 Patient: DIANA GOMEZ Sex: F : 1985 Age: 34y Beta-HCG, Qual Urine: (UCHE: 08/01/2019 21:20) ( MsgRcvd 08/01/2019 21:31) Final results Test Result Flag Units (Reference) HCG URINE QUAL NEGATIVE (NORMAL: NEGAT HCG URINE QL REENTER NEGATIVE (NORMAL: NEGAT { KIT LOT # [id number] ){ KIT EXP DATE 11/08/20 ){ P [...] medication*. Prescription Medications: 4 Clinical Report - Physicians/[facility] Emergency Department [address] [place] [address] Phone #: ext- [phone] 08/01/2019 18:52 Patient: DIANA GOMEZ Sex: F : 1985 Age: 34y ibuprofen 600 mg tablet Take 1 tablet four times a day as needed for pain for 7 days -- Dispense 28 tablet. Refills: 0. Substitution permitted. [employer] [address] [place] [address]. . Lidoderm 5 % topical patch Apply 1 patch on ce a day for 7 days -- Take off after 12 hrs. Dispense 7 patch. Refills: 0. Substitution permitted. [employer] [address] [place] [address]. . Follow-up: Return to the emergency department [...] rce(s) Supporting Document(s) ID Date Data Source [id number] 08/01/2019 09:31:[address] [facility] [place] Name Value Range Interpretation Code Description Data Lily rce(s) Supporting Document(s) HCG URINE QUAL NEGATIVE NORMAL: NEGATIVE [facility] HCG URINE QL REENTER NEGATIVE NORMAL: NEGATIVE [facility] { KIT LOT # [id number] ){ KIT EXP DATE 11/08/20 ){ PROCEDURAL CONTROL VALID ) ID Date Data Source [id number] 08/03/2019 07:23:[address] [facility] [place] Name Value Range Interpretation Code Description Data Lily rce(s) Supporting Document(s) CULTURE URINE [facility] spital _CULTURE URINE_ TEST PERFORMED AT [address] [address] CLIA# [id number] SEE SCANNED REPORT Specimen site Narrative R [facility] Result: ID Date Data Source [id number] 08/01/2019 09:33:00 PM EST [facility] Name Value Range Interpretation Code Description Data Lily rce(s) Supporting Document(s) URINALYSIS [facility] yellow NORMAL: Yellow [facility] CLARITY clear NORMAL: Clear [facility] Specific gravity of Urine by Test strip 1.010 1.001 - 1.030 [facility] pH 7 5 - 9 [facility] al Glucose [Mass/volume] in Urine by Test strip NORM NORMAL: Negat [facility] Bilirubin.total [Presence] in Urine by Test strip NEG NORMAL: Negative [facility] Ketones [Presence] in Urine by Test strip NEG NORMAL: Negative [facility] Protein [Mass/volume] in Urine by Test strip NEG NORMAL: Negat [facility] Nitrite [Presence] in Urine by Test strip NEG NORMAL: Negative [facility] BLOOD NEG NORMAL: Negative [facility] Leukocyte esterase [Presence] in Urine by Test strip 500 PARTHA L: Negative A [facility] Urobilinogen [Mass/volume] in Urine by Test strip 1 less laurita n 1.0 mg/dL [facility] MICROSCOPIC See Below [facility] ital WBC 0 - 1 NORMAL: NONE SEEN [facility] EPITHELIAL MANY NORMAL: NONE SEEN A [facility] Bacteria [Presence] in Urine sediment by Light microscopy Tr nikolas NORMAL: NONE SEEN [facility] Procedure
[2020-08-27 16:24] LABS: ALBUMIN 2.8 GM/DL (3.2-5.2); ALT/SGPT 8 U/L (12-78); BILIRUBIN,DIRECT 0.1 MG/DL (0.0-0.2); BILIRUBIN,TOTAL 0.4 MG/DL (0.2-1.0); BLOOD UREA NITROGEN 8 MG/DL (7-18); CALCIUM LEVEL 8.9 MG/DL (8.5-10.1); CARBON DIOXIDE LEVEL 23 MEQ/L (21-32); CHLORIDE LEVEL 108 MEQ/L (98-107); CK-MB VALUE MASS < 1.0 NG/ML (<3.6); CPK CREATINE PHOSPHOKINASE 61 U/L (26-192); CREATININE FOR GFR 0.64 MG/DL (0.55-1.30); FREE T4 0.87 NG/DL (0.76-1.46); GLOMERULAR FILTRATION RATE > 60.0 (>60); GLUCOSE, FASTING 113 MG/DL (70-100); LIPASE 125 U/L (73-393); MB/CK RELATIVE INDEX 1.64 (< OR =4); POTASSIUM SERUM 4.1 MEQ/L (3.5-5.1); SODIUM LEVEL 138 MEQ/L (136-145); TOTAL PROTEIN 6.6 GM/DL (6.4-8.2); TROPONIN I 0.02 NG/ML (< 0.10)
[2020-08-27 18:01] VITALS: BP 131/76
--- NOTE | 2020-08-28 08:55 | ECGEPIP ---
[facility] - ED Test Date: 2020-08-27 Pat Name: DIANA GOMEZ Department: Room: - Gender: Female [employer] Consultant: CONRADO : 1985 Requested By: Josee Smith Order Number: [id number] Reading MD: Devorah Miller Measurements Intervals [place] Rate: 119 P: 61 [place]: 125 QRS: 73 QRSD: 82 T: 51 QT: 310 QTc: 437 Interpretive Statements SINUS TACHYCARDIA ABNORMAL RHYTHM ECG No prior Electronically Signed on 08-28-2020 8:55:14 EST by Devorah Miller
== END 2020-08-27 18:03 | disposition home or self-care (01) ==
LOC: M ED 15:14
DX: O99.419 Diseases of the circulatory system complicating pregnancy, unspecified trimester (principal); R94.31 Abnormal electrocardiogram [ECG] [EKG]; Z79.899 Other long term (current) drug therapy

== ENCOUNTER → 2020-08-30 | Outpatient (CLI) | payer OTHER ==
--- NOTE | 2020-08-31 05:17 | REP ---
INDICATION: POSITION/RAJWINDER/BPP COMPARISON: 05/11/2020 TECHNIQUE: Transabdominal obstetrical ultrasound with color Doppler evaluation. FINDINGS: Examination demonstrates a single live intrauterine in cephalic presentation. motion is identified by technologist. Placenta is noted fundal and grade 3 without evidence for placenta previa or abruption. Amniotic fluid volume is normal. Cervix measures 4.2 cm in length and appears closed.. Gestational age by LMP 36 weeks 2 days with MANUELA 09/25/2020. Gestational age by 1st ultrasound 37 weeks 0 days with MANUELA 09/20/2020. FHR equals 150 beats per minute. RAJWINDER: 11.6 cm Biophysical profile score: 8/8 Umbilical artery SD ratio 1: 2.00 (1.59-3.43) Umbilical artery SD ratio 2:2.14 IMPRESSION: Single live advanced gestation in cephalic presentation. Amniotic fluid volume and biophysical profile score normal. <Electronically signed by Ori Gamino > 08/31/20 0514
== END ==
LOC: M WHC 09:40
PROVIDERS: ATTEND Advanced Practice Midwife
DX: Z34.83 Encounter for supervision of other normal pregnancy, third trimester (principal)

== ENCOUNTER 2020-09-18 10:35 | Inpatient (IN) | payer OTHER ==
[~2020-09-18] VITALS: Ht 157.5 cm; Wt 139.0 kg
[2020-09-18] VITALS (16 sets, daily range): BP systolic 131–180; BP diastolic 69–114
[2020-09-18] MEDS ORDERED: IRON65TA2 PO (10:55)
[2020-09-18] MEDS ORDERED: LACTATED RINGER'S 1000 ML IV ONE (11:00)
[2020-09-18 11:22] LABS: HEMATOCRIT 30.1 % (36.0-47.0); HEMOGLOBIN 8.9 g/dl (12.0-15.5); MEAN CORPUSCULAR HEMOGLOBIN 24.9 pg (27.0-33.0); MEAN CORPUSCULAR HGB CONC 29.6 g/dl (32.0-36.5); MEAN CORPUSCULAR VOLUME 84.3 fl (80.0-96.0); PLATELET COUNT, AUTOMATED 429 10^3/uL (150-450); RED BLOOD COUNT 3.57 10^6/uL (4.00-5.40); WHITE BLOOD COUNT 8.9 10^3/uL (4.0-10.0)
[2020-09-18] MEDS ORDERED: LR 1,000 ML IV SCH (12:00)
[2020-09-18] MEDS ORDERED: OXYTOCIN DRIP 30 UNITS in IV 1 EA IV SCH ×2 (12:00→13:11)
[2020-09-18] MEDS ORDERED: MEASLES,MUMPS,RUBELLA VACCINE INJ (MMR-II) (90707) SC SCH (13:15)
[2020-09-18] MEDS ORDERED: DOCUSATE SODIUM 100MG CAPSULE PO PRN (13:15)
[2020-09-18] MEDS ORDERED: BENZOCAINE 20% HEMORRHOIDAL OINTMENT 28GM TUBE TOP PRN (13:15)
[2020-09-18] MEDS ORDERED: METHYLERGONOVINE MALEATE 0.2 MG TAB PO PRN (13:15)
[2020-09-18] MEDS ORDERED: IBUPROFEN 600MG TAB PO PRN (13:15)
[2020-09-18] MEDS ORDERED: RHOGAM 300 MCG (1500 IU) INJ (J2790) IM SCH (13:15)
[2020-09-18] MEDS ORDERED: ACETAMINOPHEN TAB 650MG DOSE (2X325MG) PO PRN (13:15)
[2020-09-18 13:17] LABS: CORD GAS ABE V -2.4; CORD GAS HCO3 V 22.5 MEQ/L; CORD GAS O2 SAT V 80.3 %; CORD GAS PCO2 V 39.4 mmHg; CORD GAS PH V 7.375 UNITS; CORD GAS PO2 V 34.9 mmHg; CORD GAS SBC V 22.1 MEQ/L; CORD GAS TCO2 V 23.7 MEQ/L
[2020-09-18 13:20] LABS: CORD GAS ABE A -4.5; CORD GAS HCO3 A 22.8 MEQ/L; CORD GAS O2 SAT A 59.7 %; CORD GAS PCO2 A 50.6 mmHg; CORD GAS PH A 7.272 UNITS; CORD GAS PO2 A 27.7 mmHg; CORD GAS SBC A 19.9 MEQ/L; CORD GAS TCO2 A 24.4 MEQ/L
[2020-09-18] MEDS: IBUPROFEN 800 MG TAB PO PRN (13:50)
--- NOTE | 2020-09-18 14:04 | DN ---
DELIVERY NOTE DATE OF DELIVERY: 09/18/2020 Joaquín is a 35-year-old female, 9, para 6-0-2-6 with a history of prior section and successful trial of labor after (TOLAC), being admitted in active labor. She progressed to fully dilated after artificial rupture of membranes. Delivered a live female infant in left occiput anterior position. scores of 8 and 9, weight 6 pounds 1 ounce. Placenta delivered spontaneously intact, a 3-vessel cord. Perineum, vagina, cervix inspected. No laceration noted. Estimated blood loss 300 mL. Both mother and baby in stable condition.
--- NOTE | 2020-09-18 14:08 | HPE ---
HISTORY AND PHYSICAL DATE OF ADMISSION: 09/18/2020 HISTORY OF PRESENT ILLNESS: Joaquín is a 35-year-old female 9, para 5-1-2-6 with a history of prior section and two successful , who is being admitted after presenting with complaints of contractions every three to four minutes. Upon evaluation, she was found to be in active labor. At this point, a decision was made for admission as the patient desires a TOLAC. Her record was reviewed, which was essentially unremarkable. LABORATORY DATA: Blood type is O positive. Rubella immune. Hepatitis negative. HIV negative. GC and chlamydia negative. One hour sugar testing was within normal limits. Her GBS is negative. PAST MEDICAL HISTORY: Significant for asthma. PAST SURGICAL HISTORY: 1. Carpal tunnel surgery. 2. section. 3. Tonsillectomy. 4. Appendectomy. SOCIAL HISTORY: Denies any alcohol, drugs, or cigarette smoking. She is . REVIEW OF SYSTEMS: Unremarkable. MEDICATIONS: vitamin. ALLERGIES: No known drug allergies. PHYSICAL EXAMINATION: Obese female in no acute distress. Abdomen soft, nontender, and nondistended. Extremities with no clubbing, cyanosis, or edema. Vaginal exam 6-7 cm, 80%. Fetus at -3 station in vertex position with bulging membrane. Tracing reviewed. Category 1 tracing. ASSESSMENT: Intrauterine at 39 and 3/7 weeks gestation in active labor with a history of prior section who desires a trial of labor after (TLOC). GBS negative. PLAN: Admit to labor and delivery. Routine labs sent. Pain management discussed. Patient now for an epidural. We will continue to monitor. Anticipate delivery.
[2020-09-18 14:38] LABS: ALT/SGPT < 6 U/L (12-78); BILIRUBIN,TOTAL 0.5 MG/DL (0.2-1.0); CREATININE FOR GFR 0.54 MG/DL (0.55-1.30); GLOMERULAR FILTRATION RATE > 60.0 (>60); LDH LACTATE DEHYDROGENASE 168 U/L (84-246); URIC ACID 5.5 MG/DL (2.6-6.0)
[2020-09-18] MEDS: ACETAMINOPHEN 500 MG TAB PO PRN (20:16)
[2020-09-19] MEDS: IBUPROFEN 800 MG TAB PO PRN ×2 (02:53→15:37)
[2020-09-19 06:00] VITALS: BP 132/77
[2020-09-19] MEDS: ACETAMINOPHEN 500 MG TAB PO PRN ×2 (08:13→22:32)
[2020-09-19] MEDS: PRENATAL VITAMINS CHEWABLE TABLET PO SCH (08:13)
[2020-09-19 10:00] VITALS: BP 142/86
[2020-09-19 14:00] VITALS: BP 128/78
[2020-09-19 18:00] VITALS: BP 154/94
[2020-09-19 22:00] VITALS: BP 145/89
[2020-09-20 02:00] VITALS: BP 136/75
[2020-09-20 06:00] VITALS: BP 130/88
[2020-09-20] MEDS ORDERED: INFLUENZA QUADRIVALENT PF VACCINE 0.5ML SYRINGE IM ONE (09:00)
[2020-09-20] MEDS: PRENATAL VITAMINS CHEWABLE TABLET PO SCH (09:48)
[2020-09-20] MEDS: IBUPROFEN 800 MG TAB PO PRN (10:06)
== END 2020-09-20 11:45 | disposition home or self-care (01) | DRG 560 ==
LOC: M LDI 10:35 → M OBS 15:24
PROVIDERS: ADMIT Obstetrics & Gynecology; ATTEND Obstetrics & Gynecology
PROC: 10E0XZZ Delivery of Products of Conception, External Approach (ICD-10-PCS; principal; 2020-09-18)
PROC: 10907ZC Drainage of Amniotic Fluid, Therapeutic from Products of Conception, Via Natural or Artificial Opening (ICD-10-PCS; 2020-09-18)
DX: O34.219 Maternal care for unspecified type scar from previous cesarean delivery (principal); Z3A.39 39 weeks gestation of pregnancy; Z37.0 Single live birth

== ENCOUNTER 2021-12-18 06:45 | Emergency (ER) | payer OTHER ==
[~2021-12-18] VITALS: Ht 160 cm; Wt 147.9 kg
[~2021-12-18 06:45] MED LIST changes: +IRON65TA2 PO; -MICO2CRE; +MICO45CR2
[2021-12-18] MEDS ORDERED: ONDANSETRON 4MG ORAL DISINTEGRATING TAB PO ONE (07:20)
[2021-12-18] MEDS ORDERED: NS 1,000 ML IV ONE (07:45)
[2021-12-18 08:20] LABS: BASO % 0.6 % (0.0-1.0); EOS # 0.2 10^3/uL (0.0-0.5); EOS % 3.4 % (0.0-3.0); HEMATOCRIT 32.2 % (36.0-47.0); HEMOGLOBIN 9.9 g/dl (12.0-15.5); LYMPH % 28.2 % (24.0-44.0); MEAN CORPUSCULAR HEMOGLOBIN 26.2 pg (27.0-33.0); MEAN CORPUSCULAR HGB CONC 30.7 g/dl (32.0-36.5); MEAN CORPUSCULAR VOLUME 85.2 fl (80.0-96.0); MONO # 0.8 10^3/uL (0.0-0.8); MONO % 11.6 % (2.0-8.0); NEUTROPHILS # 3.9 10^3/uL (1.5-8.5); NEUTROPHILS % 55.6 % (36.0-66.0); PLATELET COUNT, AUTOMATED 415 10^3/uL (150-450); RED BLOOD COUNT 3.78 10^6/uL (4.00-5.40); WHITE BLOOD COUNT 7.1 10^3/uL (4.0-10.0)
[2021-12-18 08:28] LABS: RSV AMPLIFICATION NEGATIVE (NEGATIVE)
[2021-12-18 08:50] LABS: ALBUMIN 3.2 GM/DL (3.2-5.2); ALT/SGPT 11 U/L (12-78); BILIRUBIN,TOTAL 0.2 MG/DL (0.2-1.0); BLOOD UREA NITROGEN 9 MG/DL (7-18); CALCIUM LEVEL 9.2 MG/DL (8.5-10.1); CARBON DIOXIDE LEVEL 23 MEQ/L (21-32); CHLORIDE LEVEL 112 MEQ/L (98-107); GLOMERULAR FILTRATION RATE > 60.0 (>60); GLUCOSE, FASTING 107 MG/DL (70-100); LIPASE 111 U/L (73-393); POTASSIUM SERUM 4.7 MEQ/L (3.5-5.1); SODIUM LEVEL 143 MEQ/L (136-145); TOTAL PROTEIN 6.7 GM/DL (6.4-8.2)
[2021-12-18 09:46] VITALS: BP 130/80
== END 2021-12-18 09:48 | disposition home or self-care (01) ==
LOC: M ED 06:45
DX: O26.899 Other specified pregnancy related conditions, unspecified trimester (principal); R10.30 Lower abdominal pain, unspecified; R11.0 Nausea; O99.619 Diseases of the digestive system complicating pregnancy, unspecified trimester; R19.7 Diarrhea, unspecified; O99.019 Anemia complicating pregnancy, unspecified trimester

== ENCOUNTER 2022-01-02 03:34 | Emergency (ER) | payer OTHER ==
[~2022-01-02] VITALS: Ht 157.5 cm; Wt 146.7 kg
[2022-01-02] MEDS ORDERED: LABE100T4 (03:40)
[2022-01-02] MEDS ORDERED: PRENTAB7 (03:40)
[2022-01-02] MEDS ORDERED: VITA1CAP25 (03:40)
[2022-01-02 06:59] LABS: BASO % 0.4 % (0.0-1.0); EOS # 0.2 10^3/uL (0.0-0.5); EOS % 2.4 % (0.0-3.0); HEMATOCRIT 33.6 % (36.0-47.0); HEMOGLOBIN 10.4 g/dl (12.0-15.5); LYMPH % 27.6 % (24.0-44.0); MEAN CORPUSCULAR HEMOGLOBIN 26.3 pg (27.0-33.0); MEAN CORPUSCULAR VOLUME 84.8 fl (80.0-96.0); MONO # 0.7 10^3/uL (0.0-0.8); MONO % 9.2 % (2.0-8.0); NEUTROPHILS # 4.3 10^3/uL (1.5-8.5); NEUTROPHILS % 60.3 % (36.0-66.0); PLATELET COUNT, AUTOMATED 380 10^3/uL (150-450); RED BLOOD COUNT 3.96 10^6/uL (4.00-5.40); WHITE BLOOD COUNT 7.1 10^3/uL (4.0-10.0)
[2022-01-02 09:45] VITALS: BP 158/80
== END 2022-01-02 09:55 | disposition home or self-care (01) ==
LOC: M ED 03:34
DX: O20.8 Other hemorrhage in early pregnancy (principal); Z87.59 Personal history of other complications of pregnancy, childbirth and the puerperium; O10.011 Pre-existing essential hypertension complicating pregnancy, first trimester; O09.521 Supervision of elderly multigravida, first trimester; Z3A.01 Less than 8 weeks gestation of pregnancy

== ENCOUNTER → 2022-02-18 | Outpatient (CLI) | payer OTHER ==
[~2022-02-18] MED LIST changes: +ALBU2.5V10 NEB; -ALBU83IN NEB; +LABE100T4; +VITA1CAP25
[2022-02-18 13:19] LABS: BASO % 0.5 % (0.0-1.0); EOS # 0.2 10^3/uL (0.0-0.5); EOS % 2.1 % (0.0-3.0); HEMATOCRIT 33.2 % (36.0-47.0); HEMOGLOBIN 10.3 g/dl (12.0-15.5); LYMPH # 2.4 10^3/uL (1.5-5.0); LYMPH % 30.2 % (24.0-44.0); MEAN CORPUSCULAR HEMOGLOBIN 26.5 pg (27.0-33.0); MEAN CORPUSCULAR VOLUME 85.6 fl (80.0-96.0); MONO # 0.7 10^3/uL (0.0-0.8); MONO % 8.7 % (2.0-8.0); NEUTROPHILS # 4.6 10^3/uL (1.5-8.5); NEUTROPHILS % 57.9 % (36.0-66.0); PLATELET COUNT, AUTOMATED 382 10^3/uL (150-450); RED BLOOD COUNT 3.88 10^6/uL (4.00-5.40)
[2022-02-18 14:42] LABS: HEPATITIS C VIRUS ABY INDEX 0.1 INDEX (<0.8); HIV 1&2 SCREEN CENTAUR NEGATIVE (NEGATIVE)
[2022-02-18 14:46] LABS: GC DNA AMPLIFICATION NEGATIVE (NEGATIVE)
== END ==
LOC: M PLALAB 11:14
PROVIDERS: ATTEND Specialist
DX: Z34.81 Encounter for supervision of other normal pregnancy, first trimester (principal); Z36.89 Encounter for other specified antenatal screening

== ENCOUNTER 2022-03-01 18:49 | Emergency (ER) | payer MEDICARE, OTHER ==
[~2022-03-01] VITALS: Ht 157.5 cm; Wt 147.0 kg
[2022-03-01 19:15] VITALS: BP 131/79
[2022-03-01] MEDS ORDERED: NS 1,000 ML IV ONE (19:30)
[2022-03-01] MEDS: METOPROLOL 5 MG/5 ML VIAL IV SCH ×3 (19:45→19:50)
[2022-03-01 20:11] LABS: BASO % 0.4 % (0.0-1.0); EOS # 0.2 10^3/uL (0.0-0.5); EOS % 2.4 % (0.0-3.0); HEMATOCRIT 32.7 % (36.0-47.0); HEMOGLOBIN 10.4 g/dl (12.0-15.5); LYMPH # 2.3 10^3/uL (1.5-5.0); LYMPH % 27.7 % (24.0-44.0); MEAN CORPUSCULAR HEMOGLOBIN 27.2 pg (27.0-33.0); MEAN CORPUSCULAR HGB CONC 31.8 g/dl (32.0-36.5); MEAN CORPUSCULAR VOLUME 85.4 fl (80.0-96.0); MONO # 0.8 10^3/uL (0.0-0.8); MONO % 9.5 % (2.0-8.0); NEUTROPHILS # 4.9 10^3/uL (1.5-8.5); NEUTROPHILS % 59.6 % (36.0-66.0); PLATELET COUNT, AUTOMATED 381 10^3/uL (150-450); RED BLOOD COUNT 3.83 10^6/uL (4.00-5.40); WHITE BLOOD COUNT 8.3 10^3/uL (4.0-10.0)
[2022-03-01 20:26] LABS: INR 0.92; PROTHROMBIN TIME 12.8 SECONDS (12.7-14.5)
[2022-03-01 20:27] LABS: PARTIAL THROMBOPLASTIN TIME 25.1 SECONDS (25.9-37.0)
[2022-03-01 20:40] LABS: CK-MB VALUE MASS < 1.0 NG/ML (<3.6); CPK CREATINE PHOSPHOKINASE 63 U/L (26-192); MB/CK RELATIVE INDEX 1.59 (< OR =4)
[2022-03-01 20:45] LABS: ALBUMIN 2.8 GM/DL (3.2-5.2); ALT/SGPT 9 U/L (12-78); BILIRUBIN,DIRECT 0.3 MG/DL (0.0-0.2); BILIRUBIN,TOTAL 0.2 MG/DL (0.2-1.0); BLOOD UREA NITROGEN 9 MG/DL (7-18); CALCIUM LEVEL 9.4 MG/DL (8.5-10.1); CARBON DIOXIDE LEVEL 21 MEQ/L (21-32); CHLORIDE LEVEL 107 MEQ/L (98-107); CREATININE FOR GFR 0.61 MG/DL (0.55-1.30); FREE T4 0.88 NG/DL (0.76-1.46); GLOMERULAR FILTRATION RATE > 60.0 (>60); GLUCOSE, FASTING 92 MG/DL (70-100); LIPASE 114 U/L (73-393); POTASSIUM SERUM 4.1 MEQ/L (3.5-5.1); SODIUM LEVEL 139 MEQ/L (136-145); TOTAL PROTEIN 7.1 GM/DL (6.4-8.2)
== END 2022-03-01 22:34 | disposition home or self-care (01) ==
LOC: M ED 18:49
DX: O99.412 Diseases of the circulatory system complicating pregnancy, second trimester (principal); O10.012 Pre-existing essential hypertension complicating pregnancy, second trimester; O44.02 Complete placenta previa NOS or without hemorrhage, second trimester; O09.512 Supervision of elderly primigravida, second trimester; Z3A.16 16 weeks gestation of pregnancy; Z79.899 Other long term (current) drug therapy

== ENCOUNTER 2022-04-10 08:45 | Outpatient (CLI) | payer OTHER ==
[~2022-04-10] VITALS: Ht 157.5 cm; Wt 149.0 kg
[~2022-04-10 08:45] MED LIST changes: +IRON SUCROSE 500 MG in NS 250 ML OVER 4 HRS IV ONE; -LABE100T4; +LABE100T6
[2022-04-10 09:01] VITALS: BP 177/94
[2022-04-10 10:15] VITALS: BP 147/80
[2022-04-10 12:11] VITALS: BP 136/69
[2022-04-10 13:15] VITALS: BP 136/79
[2022-04-10 13:45] VITALS: BP 142/83
== END 2022-04-10 14:00 | disposition home or self-care (01) ==
LOC: M INFU 08:45
PROVIDERS: ATTEND Specialist
DX: D64.9 Anemia, unspecified (principal)
CPT/HCPCS: 96365; 96366; J1756

== ENCOUNTER → 2022-04-16 | Outpatient (CLI) | payer OTHER ==
[~2022-04-16] MED LIST changes: -IRON SUCROSE 500 MG in NS 250 ML OVER 4 HRS IV ONE
== END ==
LOC: M WHC 13:01
PROVIDERS: ATTEND Specialist
DX: Z34.82 Encounter for supervision of other normal pregnancy, second trimester (principal); Z36.2 Encounter for other antenatal screening follow-up; Z3A.22 22 weeks gestation of pregnancy

== ENCOUNTER → 2022-05-22 | Outpatient (CLI) | payer OTHER ==
[~2022-05-22] MED LIST changes: +FERR325T3 PO; +LABE200T5 PO; +METR-265 PO; +PRENTAB7 PO
[2022-05-22 13:09] LABS: HEMATOCRIT 32.7 % (36.0-47.0); HEMOGLOBIN 10.1 g/dl (12.0-15.5); MEAN CORPUSCULAR HEMOGLOBIN 27.4 pg (27.0-33.0); MEAN CORPUSCULAR HGB CONC 30.9 g/dl (32.0-36.5); MEAN CORPUSCULAR VOLUME 88.9 fl (80.0-96.0); PLATELET COUNT, AUTOMATED 345 10^3/uL (150-450); RED BLOOD COUNT 3.68 10^6/uL (4.00-5.40); WHITE BLOOD COUNT 7.5 10^3/uL (4.0-10.0)
[2022-05-22 15:51] LABS: GC DNA AMPLIFICATION POSITIVE (NEGATIVE)
== END ==
LOC: M PLALAB 08:57
PROVIDERS: ATTEND Obstetrics & Gynecology
DX: O09.522 Supervision of elderly multigravida, second trimester (principal)

== ENCOUNTER → 2022-07-14 | Outpatient (REF) | payer OTHER ==
[2022-07-14 19:21] LABS: GC DNA AMPLIFICATION NEGATIVE (NEGATIVE)
== END ==
LOC: M SFHCWAGY 13:01
PROVIDERS: ATTEND Specialist
DX: O10.913 Unspecified pre-existing hypertension complicating pregnancy, third trimester (principal)

== ENCOUNTER → 2022-07-23 | Outpatient (CLI) | payer OTHER | LOC: M RAD 10:03 | PROVIDERS: ATTEND Obstetrics & Gynecology | DX: O10.913 Unspecified pre-existing hypertension complicating pregnancy, third trimester (principal); Z3A.36 36 weeks gestation of pregnancy; O09.513 Supervision of elderly primigravida, third trimester ==

== ENCOUNTER → 2022-07-28 | Outpatient (CLI) | payer OTHER ==
[~2022-07-28] MED LIST changes: +LABE20TAB PO
== END ==
LOC: M LABSMTC 11:46
PROVIDERS: ATTEND Anesthesiology
DX: Z01.812 Encounter for preprocedural laboratory examination (principal); Z11.52 Encounter for screening for COVID-19

== ENCOUNTER → 2022-11-25 | Outpatient (REF) | payer OTHER ==
[~2022-11-25] MED LIST changes: +OXYC1TAB23 PO
[2022-11-25 18:35] LABS: GC DNA AMPLIFICATION NEGATIVE (NEGATIVE)
== END ==
LOC: M LAB REF 16:45
PROVIDERS: ATTEND Physician Assistant
DX: Z11.3 Encounter for screening for infections with a predominantly sexual mode of transmission (principal)

== ENCOUNTER → 2022-12-08 | Outpatient (CLI) | payer OTHER ==
[2022-12-08 17:42] LABS: HEMATOCRIT 36.9 % (36.0-47.0); HEMOGLOBIN 11.4 g/dl (12.0-15.5); MEAN CORPUSCULAR HEMOGLOBIN 27.1 pg (27.0-33.0); MEAN CORPUSCULAR HGB CONC 30.9 g/dl (32.0-36.5); MEAN CORPUSCULAR VOLUME 87.6 fl (80.0-96.0); PLATELET COUNT, AUTOMATED 394 10^3/uL (150-450); RED BLOOD COUNT 4.21 10^6/uL (4.00-5.40); WHITE BLOOD COUNT 5.9 10^3/uL (4.0-10.0)
[2022-12-08 18:10] LABS: ALBUMIN 3.8 G/DL (3.2-5.2); ALKALINE PHOSPHATASE 63 U/L (46-116); ALT/SGPT < 9 U/L (7.0-40); AST/SGOT 11 U/L (<34); BILIRUBIN,TOTAL 0.5 MG/DL (0.3-1.2); BLOOD UREA NITROGEN 15 MG/DL (9-23); CALCIUM LEVEL 8.9 MG/DL (8.5-10.1); CARBON DIOXIDE LEVEL 25 MMOL/L (20-31); CHLORIDE LEVEL 107 MMOL/L (98-107); CHOLESTEROL LEVEL 169 MG/DL (<200); CHOLESTEROL RISK RATIO 2.87 (<5); CREATININE FOR GFR 0.78 MG/DL (0.55-1.30); GLOMERULAR FILTRATION RATE > 60.0 (>60); GLUCOSE, FASTING 84 MG/DL (60-100); HDL CHOLESTEROL 58.8 MG/DL (>40); LDL CHOLESTEROL 95.6 MG/DL (<100); NON-HDL-C 110.2 MG/DL; POTASSIUM SERUM 3.8 MMOL/L (3.5-5.1); SODIUM LEVEL 138 MMOL/L (136-145); TOTAL PROTEIN 7.3 G/DL (5.7-8.2); TRIGLYCERIDES LEVEL 73 MG/DL (<150)
[2022-12-08 18:35] LABS: HIV 1&2 SCREEN CENTAUR NEGATIVE (NEGATIVE)
[2022-12-08 18:42] LABS: HEPATITIS C VIRUS ABY INDEX 0.1 INDEX (<0.8)
== END ==
LOC: M LAB 16:30
PROVIDERS: ATTEND Physician Assistant
DX: Z11.59 Encounter for screening for other viral diseases (principal); Z11.4 Encounter for screening for human immunodeficiency virus [HIV]; Z11.3 Encounter for screening for infections with a predominantly sexual mode of transmission; E55.9 Vitamin D deficiency, unspecified; J45.20 Mild intermittent asthma, uncomplicated; E66.01 Morbid (severe) obesity due to excess calories; Z13.220 Encounter for screening for lipoid disorders

== ENCOUNTER → 2023-03-18 | Outpatient (CLI) | payer OTHER ==
[2023-03-18 10:46] LABS: HEMATOCRIT 35.1 % (36.0-47.0); HEMOGLOBIN 10.7 g/dl (12.0-15.5); MEAN CORPUSCULAR HEMOGLOBIN 26.4 pg (27.0-33.0); MEAN CORPUSCULAR HGB CONC 30.5 g/dl (32.0-36.5); MEAN CORPUSCULAR VOLUME 86.7 fl (80.0-96.0); PLATELET COUNT, AUTOMATED 413 10^3/uL (150-450); RED BLOOD COUNT 4.05 10^6/uL (4.00-5.40); WHITE BLOOD COUNT 6.9 10^3/uL (4.0-10.0)
[2023-03-18 10:56] LABS: INR 0.88; PROTHROMBIN TIME 12.1 SECONDS (12.5-14.5)
[2023-03-18 11:13] LABS: BLOOD UREA NITROGEN 12 MG/DL (9-23); CALCIUM LEVEL 8.3 MG/DL (8.5-10.1); CARBON DIOXIDE LEVEL 27 MMOL/L (20-31); CHLORIDE LEVEL 105 MMOL/L (98-107); CREATININE FOR GFR 0.71 MG/DL (0.55-1.30); GLOMERULAR FILTRATION RATE > 60.0 (>60); GLUCOSE, FASTING 93 MG/DL (60-100); HCG, SERUM QUANTITATIVE < 2.6 MIU/ML (<4.2); POTASSIUM SERUM 4.4 MMOL/L (3.5-5.1); SODIUM LEVEL 140 MMOL/L (136-145)
== END ==
LOC: M LAB 09:05
PROVIDERS: ATTEND Internal Medicine Cardiovascular Disease
DX: I47.1 Supraventricular tachycardia (principal)

== ENCOUNTER → 2023-03-18 | Outpatient (CLI) | payer OTHER ==
[2023-03-18 11:41] LABS: HIV 1&2 SCREEN NEGATIVE (NEGATIVE)
[2023-03-18 11:49] LABS: HEPATITIS C VIRUS ABY INDEX 0.17 INDEX (<0.8)
[2023-03-18 12:19] LABS: GC DNA AMPLIFICATION NEGATIVE (NEGATIVE)
== END ==
LOC: M RAD 09:01
PROVIDERS: ATTEND Physician Assistant
DX: M25.521 Pain in right elbow (principal); R53.1 Weakness; M79.641 Pain in right hand; Z11.3 Encounter for screening for infections with a predominantly sexual mode of transmission

== ENCOUNTER 2023-04-10 13:25 | Emergency (ER) | payer OTHER ==
[~2023-04-10] VITALS: Ht 157.5 cm; Wt 138.2 kg
[2023-04-10 13:26] VITALS: BP 145/99; TEMP 97.7; O2SAT 98
[2023-04-11] MEDS ORDERED: ASPI81CH33 PO (09:17)
== END 2023-04-10 17:21 | disposition left against medical advice (07) ==
LOC: M ED 13:25
DX: Z53.21 Procedure and treatment not carried out due to patient leaving prior to being seen by health care provider (principal)

== ENCOUNTER 2023-04-11 09:02 | Emergency (ER) | payer OTHER ==
[~2023-04-11] VITALS: Ht 157.5 cm; Wt 138.6 kg
[2023-04-11] MEDS ORDERED: ASPI81CH33 PO (09:17)
[2023-04-11] MEDS ORDERED: LABETALOL 200 MG TAB PO ONE (11:45)
[2023-04-11 12:25] LABS: BASO % 0.6 % (0.0-1.0); EOS # 0.2 10^3/uL (0.0-0.5); EOS % 3.3 % (0.0-3.0); HEMATOCRIT 34.1 % (36.0-47.0); HEMOGLOBIN 10.6 g/dl (12.0-15.5); LYMPH % 42.1 % (24.0-44.0); MEAN CORPUSCULAR HEMOGLOBIN 26.8 pg (27.0-33.0); MEAN CORPUSCULAR HGB CONC 31.1 g/dl (32.0-36.5); MEAN CORPUSCULAR VOLUME 86.3 fl (80.0-96.0); MONO # 0.5 10^3/uL (0.0-0.8); MONO % 10.3 % (2.0-8.0); NEUTROPHILS # 2.1 10^3/uL (1.5-8.5); NEUTROPHILS % 43.5 % (36.0-66.0); PLATELET COUNT, AUTOMATED 449 10^3/uL (150-450); RED BLOOD COUNT 3.95 10^6/uL (4.00-5.40); WHITE BLOOD COUNT 4.9 10^3/uL (4.0-10.0)
[2023-04-11 12:40] LABS: INR 1.04; PARTIAL THROMBOPLASTIN TIME 24.4 SECONDS (24.8-34.2); PROTHROMBIN TIME 13.3 SECONDS (12.5-14.5)
[2023-04-11 12:43] LABS: D-DIMER QUANT 0.54 ug/mL (<0.5)
[2023-04-11 12:47] LABS: CK-MB VALUE MASS < 1.0 NG/ML (<3.6); LIPASE 31 U/L (12-53)
[2023-04-11 12:50] LABS: ALBUMIN 3.7 G/DL (3.2-5.2); ALKALINE PHOSPHATASE 65 U/L (46-116); ALT/SGPT < 9 U/L (7.0-40); AST/SGOT < 8 U/L (<34); BILIRUBIN,DIRECT 0.1 MG/DL (<0.4); BILIRUBIN,TOTAL 0.5 MG/DL (0.3-1.2); BLOOD UREA NITROGEN 12 MG/DL (9-23); CALCIUM LEVEL 9.3 MG/DL (8.5-10.1); CARBON DIOXIDE LEVEL 27 MMOL/L (20-31); CHLORIDE LEVEL 106 MMOL/L (98-107); CREATININE FOR GFR 0.74 MG/DL (0.55-1.30); GLOMERULAR FILTRATION RATE > 60.0 (>60); GLUCOSE, FASTING 91 MG/DL (60-100); POTASSIUM SERUM 4.1 MMOL/L (3.5-5.1); SODIUM LEVEL 140 MMOL/L (136-145); TOTAL PROTEIN 7.3 G/DL (5.7-8.2)
[2023-04-11 12:51] LABS: FREE T4 1.09 NG/DL (0.89-1.76)
[2023-04-11 12:52] LABS: THYROID STIMULATING HORMONE 1.034 uIU/ML (0.55-4.78)
[2023-04-11 12:56] LABS: CPK CREATINE PHOSPHOKINASE 72 U/L (34-145); MB/CK RELATIVE INDEX 1.38 (< OR =4)
[2023-04-11] MEDS ORDERED: ISOVUE-370 76% 100ML VIAL As Ordered ONE (13:21)
[2023-04-11 14:16] VITALS: BP 183/102; TEMP 98.3; O2SAT 99
== END 2023-04-11 14:21 | disposition home or self-care (01) ==
LOC: M ED 09:02
DX: R07.9 Chest pain, unspecified (principal); I10 Essential (primary) hypertension; I49.3 Ventricular premature depolarization; F41.9 Anxiety disorder, unspecified; F32.A Depression, unspecified; F12.10 Cannabis abuse, uncomplicated; Z79.82 Long term (current) use of aspirin; Z79.899 Other long term (current) drug therapy
CPT/HCPCS: 36415; 71046; 71275; 80048; 80076; 82550; 82553; 83690; 83880; 84439; 84443; 84702; 85025; 85379; 85610; 85730; 93005; 99284; Q9967

== ENCOUNTER → 2023-06-22 | Outpatient (REF) ==
[~2023-06-22] MED LIST changes: +ASPI81CH33 PO
== END ==
LOC: M LAB 09:28
PROVIDERS: ATTEND Nurse Practitioner Adult Health
DX: Z02.89 Encounter for other administrative examinations (principal)

== ENCOUNTER → 2023-06-22 | Outpatient (CLI) | payer OTHER ==
[2023-06-22 11:26] LABS: BLOOD UREA NITROGEN 22 MG/DL (9-23); CALCIUM LEVEL 8.8 MG/DL (8.5-10.1); CARBON DIOXIDE LEVEL 28 MMOL/L (20-31); CHLORIDE LEVEL 109 MMOL/L (98-107); CREATININE FOR GFR 0.74 MG/DL (0.55-1.30); GLOMERULAR FILTRATION RATE > 60.0 (>60); GLUCOSE, FASTING 86 MG/DL (60-100); POTASSIUM SERUM 4.8 MMOL/L (3.5-5.1); SODIUM LEVEL 142 MMOL/L (136-145)
== END ==
LOC: M LAB 09:31
PROVIDERS: ATTEND Internal Medicine Cardiovascular Disease
DX: I10 Essential (primary) hypertension (principal)

== ENCOUNTER → 2023-09-08 | Outpatient (REF) | payer OTHER | LOC: M LAB REF 16:24 | PROVIDERS: ATTEND Physician Assistant | DX: R10.2 Pelvic and perineal pain (principal) ==

== ENCOUNTER 2023-09-21 12:58 | Emergency (ER) | payer OTHER ==
[2023-09-21 12:58] VITALS: BP 162/95; TEMP 97.7; O2SAT 100
== END 2023-09-21 16:39 | disposition left against medical advice (07) ==
LOC: M ED 12:58
DX: Z53.21 Procedure and treatment not carried out due to patient leaving prior to being seen by health care provider (principal)

== ENCOUNTER 2023-09-27 11:11 | Emergency (ER) | payer OTHER ==
[~2023-09-27] VITALS: Ht 157.5 cm; Wt 138.2 kg
[2023-09-27 11:11] VITALS: TEMP 98.2
[2023-09-27] MEDS ORDERED: MUCI1TAB18 PO (12:53)
[2023-09-27] MEDS ORDERED: PSEU-52 PO (12:53)
[2023-09-27 12:59] VITALS: BP 142/78; O2SAT 98
== END 2023-09-27 13:03 | disposition home or self-care (01) ==
LOC: M ED 11:11
DX: J06.9 Acute upper respiratory infection, unspecified (principal); I10 Essential (primary) hypertension; Z79.899 Other long term (current) drug therapy

== ENCOUNTER → 2023-10-09 | Outpatient (CLI) | payer OTHER ==
[~2023-10-09] MED LIST changes: +MUCI1TAB18 PO; +PSEU-52 PO
== END ==
LOC: M PLARAD 07:51
PROVIDERS: ATTEND Orthopaedic Surgery
DX: M25.521 Pain in right elbow (principal)

== ENCOUNTER 2024-01-06 10:33 | Emergency (ER) | payer OTHER ==
[~2024-01-06] VITALS: Ht 157.5 cm; Wt 141.6 kg
[2024-01-06 10:34] VITALS: BP 133/86; TEMP 96.9; O2SAT 100
[2024-01-06] MEDS ORDERED: FLUT15.820 (10:51)
== END 2024-01-06 12:43 | disposition home or self-care (01) ==
LOC: M ED 10:33
DX: M67.442 Ganglion, left hand (principal); J45.909 Unspecified asthma, uncomplicated; I10 Essential (primary) hypertension; E78.5 Hyperlipidemia, unspecified; F41.9 Anxiety disorder, unspecified; F32.A Depression, unspecified

== ENCOUNTER → 2024-01-21 | Outpatient (REF) | payer OTHER ==
[~2024-01-21] MED LIST changes: +FLUT15.820
[2024-01-21 19:09] LABS: HEMOGLOBIN 10.6 g/dl (12.0-15.5); MEAN CORPUSCULAR HEMOGLOBIN 26.4 pg (27.0-33.0); MEAN CORPUSCULAR HGB CONC 31.2 g/dl (32.0-36.5); MEAN CORPUSCULAR VOLUME 84.8 fl (80.0-96.0); PLATELET COUNT, AUTOMATED 430 10^3/uL (150-450); RED BLOOD COUNT 4.01 10^6/uL (4.00-5.40); WHITE BLOOD COUNT 6.3 10^3/uL (4.0-10.0)
[2024-01-21 19:37] LABS: THYROID STIMULATING HORMONE 1.765 uIU/ML (0.55-4.78); TOTAL 25(OH) VITAMIN D 9.7 NG/ML (20.0-100.0)
[2024-01-21 19:38] LABS: ALBUMIN 3.7 G/DL (3.2-5.2); ALKALINE PHOSPHATASE 62 U/L (46-116); ALT/SGPT < 9 U/L (7.0-40); AST/SGOT < 8 U/L (<34); BILIRUBIN,TOTAL 0.5 MG/DL (0.3-1.2); BLOOD UREA NITROGEN 13 MG/DL (9-23); CALCIUM LEVEL 9.3 MG/DL (8.5-10.1); CARBON DIOXIDE LEVEL 29 MMOL/L (20-31); CHLORIDE LEVEL 105 MMOL/L (98-107); CHOLESTEROL LEVEL 162 MG/DL (<200); CHOLESTEROL RISK RATIO 2.77 (<5); CREATININE FOR GFR 0.71 MG/DL (0.55-1.30); GLOMERULAR FILTRATION RATE > 60.0 (>60); GLUCOSE, FASTING 91 MG/DL (60-100); HDL CHOLESTEROL 58.4 MG/DL (>40); NON-HDL-C 103.6 MG/DL; POTASSIUM SERUM 4.4 MMOL/L (3.5-5.1); SODIUM LEVEL 138 MMOL/L (136-145); TOTAL PROTEIN 7.3 G/DL (5.7-8.2); TRIGLYCERIDES LEVEL 68 MG/DL (<150)
== END ==
LOC: M LAB REF 16:46
PROVIDERS: ATTEND Physician Assistant
DX: I10 Essential (primary) hypertension (principal); E55.9 Vitamin D deficiency, unspecified

== ENCOUNTER → 2024-02-05 | Outpatient (CLI) | payer OTHER | LOC: M PLARAD 15:10 | PROVIDERS: ATTEND Orthopaedic Surgery Hand Surgery | DX: M67.442 Ganglion, left hand (principal) ==